=== PATIENT | female | born 1990 | race Caucasian/White ===

== ENCOUNTER 2017-09-10 17:26 | Emergency (ER) | payer OTHER, SELFPAY ==
[2017-09-10 17:30] VITALS: BP 126/68; PULSE 88; RESP 20; O2SAT 97; BMI 27.9
[2017-09-10 17:41] VITALS: BP 126/68; PULSE 88; RESP 20; TEMP 36.6; O2SAT 97; BMI 27.9
--- NOTE | 2017-09-10 17:52 | HMH.EDUTC ---
[facility] [place]ression: Skin problem Disposition: Home, Self-Care Condition on Discharge: Good Instructions: DI for Boils, Boil Additional Instructions: Follow up with family doctor in 12-48 hours if no improvement or worsening of symptom Call Dr Smith office tomorrow and seek appointment for possible I&D if needed Take medication as prescribed Monitor area for improvement or worsening of symptoms by monitoring the area that I marked on the outter ring of abcess If you began to notice red streaks, fever,chills or worsening of swelling in the area go straight to ER Over the counter Motrin or Tylenol will help with pain Warm compress to area may help with pain and swelling Prescriptions: cephALEXin [Keflex 500mg Cap] 500 mg PO QID #40 cap Sulfamethoxazole/Trimethoprim [Bactrim DS tablet] 1 each PO BID #20 tab Referrals: Chepe Red MD [Staff Physician] - (Call on 09/11/17 for appointment) Time of Disposition: 18:03 Medical Decision Making - Medical Records Medical records reviewed: Yes: I reviewed the patient's medical records. Vital Signs: 09/10/17 17:30 09/10/17 17:41 Temperature 98 F Temperature Source Temporal Artery Scan Pulse Rate [Right Radial] 88 88 Respiratory Rate 20 20 Blood Pressure [Right Arm] 126/68 126/68 Blood Pressure Mean [Right Arm] 87 87 Blood Pressure Source [Right Arm] Automatic Cuff Automatic Cuff Blood Pressure Position [Right Arm] Sitting Sitting 02 Sat by Pulse Oximetry 97 97 Oxygen Delivery Method Room Air - Han Inquiry Pt receiving controlled substance: No Han was queried for this patient: No [facility] [place] [facility] [place] - General Stated complaint: knot under L armpit Mode of Arrival: Family Vehicle Source of Information: Patient Limitations: No Limitations Description of Symptoms (Recalled from Triage Doc. by RN): C/O KNOT UNDER LEFT ARM HEENT Symptoms (Recalled from RN notes): No Resp Symptoms (Recalled from RN notes): No Skin Symptoms (Recalled from RN notes): Yes (KNOT UNDER LEFT ARM) MS Symptoms (Recalled from RN notes): No Functional Status (Recalled from RN notes): N/A - History of Present Illness Provider Complaint: States that she noticed small raised knot like area under her left arm State that yesterday felt like it may have drained some Today still sore and she thought she may want to come in and get checked to see if she needed antibiotics - Related Data Previous Rx's Medication Instructions Recorded Sulfamethoxazole/Trimethoprim 1 each PO BID #20 tab 09/10/17 [Bactrim DS tablet] cephALEXin [Keflex 500mg Cap] 500 mg PO QID #40 cap 09/10/17 Allergies Allergy/AdvReac Type Severity Reaction Status Date / Time doxycycline [DOXYCYCLINE] Allergy Intermediate VOMITING Verified 09/10/17 17:44 - Worker's Comp Is this a Worker's Comp case?: No [facility] History I have reviewed the patient's past medical history: Yes - Social History Alcohol Intake: never - Psychiatric History Expresses thoughts of harming self/others: None Suicide Plan Description: No Plan ROS Obtained: Yes All systems reviewed & no additional complaints - Integumentary/Breasts Skin/Breast: Reports other Comments: boil like Knot under her left armpit Physical Exam - General General appearance: alert, in no apparent distress - Respiratory Respiratory exam: Present: normal lung sounds bilaterally. Absent: respiratory distress - Cardiovascular Cardiovascular exam: Present: regular rate - Neurological Exam Neurological exam: Present: alert, oriented X3 - Skin Skin exam: Present: other - Expanded Skin Exam Type of lesion: Present: abscess, other 1 - small approximated 2-3 oval raised hard area with mild redness, no drainage warm to touch Comment: 2x3 oval area under her left arm Area was marked to monitor to see if getting larger or smaller, sensative to touch, no draina
--- NOTE | 2017-09-10 17:56 | ED_ITS ---
[facility] [place] Clinical Impression: Skin problem Disposition: Home, Self-Care Condition on Discharge: Good Instructions: DI for Boils, Boil Additional Instructions: Follow up with family doctor in 12-48 hours if no improvement or worsening of symptom Call Dr Smith office tomorrow and seek appointment for possible I&D if needed Take medication as prescribed Monitor area for improvement or worsening of symptoms by monitoring the area that I marked on the outter ring of abcess If you began to notice red streaks, fever,chills or worsening of swelling in the area go straight to ER Over the counter Motrin or Tylenol will help with pain Warm compress to area may help with pain and swelling Prescriptions: cephALEXin [Keflex 500mg Cap] 500 mg PO QID #40 cap Sulfamethoxazole/Trimethoprim [Bactrim DS tablet] 1 each PO BID #20 tab Referrals: Chepe Red MD [Staff Physician] - (Call on 09/11/17 for appointment) Time of Disposition: 18:03 Medical Decision Making - Medical Records Medical records reviewed: Yes: I reviewed the patient's medical records. Vital Signs: 09/10/17 17:30 09/10/17 17:41 Temperature 98 F Temperature Source Temporal Artery Scan Pulse Rate [Right Radial] 88 88 Respiratory Rate 20 20 Blood Pressure [Right Arm] 126/68 126/68 Blood Pressure Mean [Right Arm] 87 87 Blood Pressure Source [Right Arm] Automatic Cuff Automatic Cuff Blood Pressure Position [Right Arm] Sitting Sitting 02 Sat by Pulse Oximetry 97 97 Oxygen Delivery Method Room Air - Han Inquiry Pt receiving controlled substance: No Han was queried for this patient: No [facility] [place] HPI - General Stated complaint: knot under L armpit Mode of Arrival: Family Vehicle Source of Information: Patient Limitations: No Limitations Description of Symptoms (Recalled from Triage Doc. by RN): C/O KNOT UNDER LEFT ARM HEENT Symptoms (Recalled from RN notes): No Resp Symptoms (Recalled from RN notes): No Skin Symptoms (Recalled from RN notes): Yes (KNOT UNDER LEFT ARM) MS Symptoms (Recalled from RN notes): No Functional Status (Recalled from RN notes): N/A - History of Present Illness Provider Complaint: States that she noticed small raised knot like area under her left arm State that yesterday felt like it may have drained some Today still sore and she thought she may want to come in and get checked to see if she needed antibiotics - Related Data Previous Rx's Medication Instructions Recorded Sulfamethoxazole/Trimethoprim 1 each PO BID #20 tab 09/10/17 [Bactrim DS tablet] cephALEXin [Keflex 500mg Cap] 500 mg PO QID #40 cap 09/10/17 Allergies Allergy/AdvReac Type Severity Reaction Status Date / Time doxycycline [DOXYCYCLINE] Allergy Intermediate VOMITING Verified 09/10/17 17:44 - Worker's Comp Is this a Worker's Comp case?: No [facility] History I have reviewed the patient's past medical history: Yes - Social History Alcohol Intake: never - Psychiatric History Expresses thoughts of harming self/others: None Suicide Plan Description: No Plan ROS Obtained: Yes All systems reviewed & no additional complaints - Integumentary/Breasts Skin/Breast: Reports other Comments: boil like Knot under her left armpit Physical Exam - General General appearance: alert, in no apparent distress - Respiratory Respiratory
[2017-09-10 18:21] VITALS: BP 126/68; PULSE 80; RESP 20; TEMP 36.6; O2SAT 98
== END 2017-09-10 18:22 | disposition home or self-care (01) ==
PROVIDERS: Emergency Provider Emergency Medicine; Family Provider Internal Medicine Adolescent Medicine
DX: L98.9 Disorder of the skin and subcutaneous tissue, unspecified (principal); Z88.1 Allergy status to other antibiotic agents
CPT/HCPCS: 99202

== ENCOUNTER 2018-12-19 12:49 | Emergency (ER) | payer OTHER, SELFPAY ==
[2018-12-19 12:55] VITALS: BP 126/80; PULSE 100; RESP 18; TEMP 36.7; O2SAT 99; BMI 24.1
[2018-12-19 13:15] LABS: Microscopic, Urine URINE MICROSCOPIC (MICROSCOPIC)
[2018-12-19 13:17] LABS: Basophils % 0.4 % (0.1-2.0); Blood, Urine 3+ (Negative); Color,Urine RED (Yellow); Eosinophils # 0.2 K/mm3 (0.0-0.4); Eosinophils % 2.1 % (0.1-12.0); Glucose,Urine (UA) Negative (Negative); Hematocrit 41.3 % (37.0-47.0); Hemoglobin 13.2 g/dL (12.2-16.2); Ketones,Urine Negative (Negative); Leukocyte Esterase,Urine 2+ (Negative); Lymphocytes % 20.2 % (10-50); Mean Corpuscular Hemoglobin 27.7 pg (27.0-31.2); Mean Corpuscular Volume 86.4 fl (81-99); Mean Platelet Volume 7.8 fl (7.4-10.4); Monocytes # 0.5 K/mm3 (0.1-1.0); Monocytes % 4.7 % (1.7-9.3); Neutrophils # 7.3 K/mm3 (1.8-7.8); Neutrophils % 72.5 % (37.0-80.0); Nitrate,Urine Negative (Negative); Platelet Count 254 K/mm3 (142-424); Protein,Urine 2+ (Negative); Red Blood Count 4.78 M/mm3 (4.20-5.40); Red Cell Distribution Width 13.6 % (11.5-17.5); Specific Gravity, Urine 1.015 (1.005-1.030); Urobilinogen,Urine 0.2 EU/dl (0.2); White Blood Count 10.1 K/mm3 (4.8-10.8)
[2018-12-19 13:19] LABS: Urine Pregnancy, HCG Qual. Positive (Negative)
[2018-12-19 13:32] LABS: Appearance,Urine Cloudy (Clear); Bilirubin,Urine Negative (Negative)
[2018-12-19 13:47] LABS: Bacteria,Urine 1+ /lpf; RBC,Urine 50-100 #/hpf (0-3)
[2018-12-19 13:49] LABS: Alanine Aminotransferase 23 U/L (12-78); Albumin Level 3.9 gm/dL (3.4-5.0); Albumin/Globulin Ratio 1.2 (1.1-1.8); Alkaline Phosphatase 103 U/L (46-116); Aspartate Amino Transferase 10 U/L (15-37); Bilirubin,Total 0.3 mg/dL (0.2-1.0); Blood Urea Nitrogen 8 mg/dL (7-18); Calcium 8.7 mg/dL (8.5-10.1); Carbon Dioxide 27 mmol/L (21.0-32.0); Chloride 103 mmol/L (98-107); Creatinine Clearance Estimated 116 mL/min (50-200); Creatinine,Serum 0.75 mg/dL (0.55-1.02); Estimated Glomerular Filt Rate 92 ml/min (>60); GFR (African American) 111 ML/MIN (>60); Globulin 3.2 gm/dl (1.3-3.2); Glucose 85 mg/dL (74-106); HCG,Quantitative 4976 mIU/mL; Sodium 139 mmol/L (136-145); Total Protein,Serum 7.1 gm/dL (6.4-8.2)
--- NOTE | 2018-12-19 13:55 | US_ITS ---
US OB transvaginal HISTORY: ITS.REASON: ABNORMAL BLEEDING ORDERING PHYSICIAN: Humphrey Multani MD PATIENT AGE: 28 years COMPARISON: None FINDINGS: There is a small intrauterine gestational sac with a pole with a crown-rump length of 0.61 cm correlating to gestational age of 6 weeks and 3 days. The ultrasound is collapsed. No heart tones are present. Unremarkable adnexa. The uterus is retroverted. IMPRESSION: There is a small intrauterine gestational sac with a pole with a crown-rump length measuring 6 weeks and 3 days. No heart tones are apparent. Cannot confirm viability. Follow-up suggested with beta-hCG and ultrasound.
--- NOTE | 2018-12-19 14:11 | PC.NURSE ---
Pt to rad
[2018-12-19 15:01] VITALS: BP 126/66; PULSE 65; RESP 18; TEMP 36.6; O2SAT 100
--- NOTE | 2018-12-19 15:15 | HMH.EDUROGF ---
ED Disposition Clinical Impression: Threatened in first trimester Disposition: Home, Self-Care Condition on Discharge: Good Instructions: DI for Threatened Prescriptions: Hydrocodone/Acetaminophen [[place] 7.5-325 Tablet] 1 tab PO TID PRN 3 Days #10 tab PRN Reason: Mild To Moderate Pain Referrals: Provider,Referral, [Primary Care Provider] - Time of Disposition: 15:19 - Critical Care Critical Care Time: No Attestation: On 12/19/18, the high probability of a clinically significant, sudden or life threatening deterioration of the following system(s) required my full and direct attention, intervention and personal management. The time I documented below is in addition to time spent performing reported procedures but includes the following listed in this critical care notation. Medical Decision Making - Medical Records Medical records reviewed: Yes: I reviewed the patient's medical records. - Han Inquiry Pt receiving controlled substance: No Han was queried for this patient: No Vital Signs: 12/19/18 12:55 12/19/18 15:01 Temperature 98.1 F 98 F Temperature Source Oral Oral Pulse Rate 65 Pulse Rate [Right Apical] 100 H Respiratory Rate 18 18 Blood Pressure 126/66 Blood Pressure [Right Arm] 126/80 Blood Pressure Mean [Right Arm] 95 02 Sat by Pulse Oximetry 99 Oxygen Delivery Method Room Air Room Air - Lab Data Lab results reviewed: Yes: I reviewed the patient's lab results. Lab Results 12/19/18 13:00: Urine Color Red, Urine Appearance Cloudy, Urine pH 6.0, Ur Specific [place] 1.015, Urine Protein 2+, Urine Glucose (UA) Negative, Urine Ketones Negative, Urine Blood 3+, Urine Nitrate Negative, Urine Bilirubin Negative, Urine Urobilinogen 0.2, Ur Leukocyte Esterase 2+ A, Urine RBC 50-100, Urine WBC 10-20, Ur Squamous Epith Cells 3-5, Urine Bacteria 1+ 12/19/18 13:00: WBC 10.1, RBC 4.78, Hgb 13.2, Hct 41.3, MCV 86.4, MCH 27.7, MCHC 32.0, RDW 13.6, Plt Count 254, MPV 7.8, Neut % (Auto) 72.5, Lymph % (Auto) 20.2, [place] % (Auto) 4.7, Eos % (Auto) 2.1, Baso % (Auto) 0.4, Neut # (Auto) 7.3, Lymph # (Auto) 2.0, [place] # (Auto) 0.5, Eos # (Auto) 0.2, Baso # (Auto) 0.0 12/19/18 13:00: Sodium 139, Potassium 4.0, Chloride 103, Carbon Dioxide 27, Anion Gap 13.0, BUN 8, Creatinine 0.75, Estimated Creat Clear 116, Estimated GFR 92, Est GFR ( Amer) 111, Glucose 85, Calcium 8.7, Total Bilirubin 0.3, AST 10 L, ALT 23, Alkaline Phosphatase 103, Total Protein 7.1, Albumin 3.9, Globulin 3.2, Albumin/Globulin Ratio 1.2, HCG, Quant [id number] H 12/19/18 13:00: Urine HCG, Qual Positive Result diagrams: 12/19/18 13:00 12/19/18 13:00 Orders (Tests/Meds): ORDERS Category Date Time Status Urine Culture Stat Micro 12/19/18 13:00 Received US OB transvaginal Stat Ultrasound 12/19/18 13:55 Taken Female Urogenital HPI - General Chief complaint: Vaginal Bleeding Stated complaint: Vaginal Bleeding Pt. is Time Seen by Provider: 12/19/18 15:15 Mode of Arrival: Ambulatory Source of Information: Patient Limitations: No Limitations Description of Symptoms (Recalled from ER Triage Doc. by RN): PT C/O VAGINAL BLEEDING. PT STATES SHE IS AND DOESNT KNOW HOW FAR ALONG SHE IS. - History of Present Illness HPI Narrative: 4 days of suprapubic cramping/aching, light bleeding of lesser intensity than a menses. is suspected by her, not tested as of yet : yes - Related Data Previous Rx's Medication Instructions Recorded Sulfamethoxazole/Trimethoprim 1 each PO BID #20 tab 09/10/17 [Bactrim DS tablet] cephALEXin [Keflex 500mg Cap] 500 mg PO QID #40 cap 09/10/17 Hydrocodone/Acetaminophen [[place] 1 tab PO TID PRN 3 Days #10 tab 12/19/18 7.5-325 Tablet] Allergies Allergy/AdvReac Type Severity Reaction Status Date / Time doxycycline [DOXYCYCLINE] Allergy Intermediate VOMITING Verified 09/10/17 17:44 [facility] History - Hepatitis A Screen Drug us
--- NOTE | 2018-12-19 15:18 | ED_ITS ---
ED Disposition Clinical Impression: Threatened in first trimester Disposition: Home, Self-Care Condition on Discharge: Good Instructions: DI for Threatened Prescriptions: Hydrocodone/Acetaminophen [[place] 7.5-325 Tablet] 1 tab PO TID PRN 3 Days #10 tab PRN Reason: Mild To Moderate Pain Referrals: Provider,Referral, [Primary Care Provider] - Time of Disposition: 15:19 - Critical Care Critical Care Time: No Attestation: On 12/19/18, the high probability of a clinically significant, sudden or life t hreatening deterioration of the following system(s) required my full and direct attention, intervention and personal management. The time I documented below is in addition to time spent performing reported procedures but includes the following listed in this critical care notation. Medical Decision Making - Medical Records Medical records reviewed: Yes: I reviewed the patient's medical records. - Han Inquiry Pt receiving controlled substance: No Han was queried for this patient: No Vital Signs: 12/19/18 12:55 12/19/18 15:01 Temperature 98.1 F 98 F Temperature Source Oral Oral Pulse Rate 65 Pulse Rate [Right Apical] 100 H Respiratory Rate 18 18 Blood Pressure 126/66 Blood Pressure [Right Arm] 126/80 Blood Pressure Mean [Right Arm] 95 02 Sat by Pulse Oximetry 99 Oxygen Delivery Method Room Air Room Air - Lab Data Lab results reviewed: Yes: I reviewed the patient's lab results. Lab Results 12/19/18 13:00: Urine Color Red, Urine Appearance Cloudy, Urine pH 6.0, Ur Specific [place] 1.015, Urine Protein 2+, Urine Glucose (UA) Negative, Urine Ketones Negative, Urine Blood 3+, Urine Nitrate Negative, Urine Bilirubin Negati ve, Urine Urobilinogen 0.2, Ur Leukocyte Esterase 2+ A, Urine RBC 50-100, Urine WBC 10-20, Ur Squamous Epith Cells 3-5, Urine Bacteria 1+ 12/19/18 13:00: WBC 10.1, RBC 4.78, Hgb 13.2, Hct 41.3, MCV 86.4, MCH 27.7, MCHC 32.0, RDW 13.6, Plt Count 254, MPV 7.8, Neut % (Auto) 72.5, Lymph % (Auto) 20.2, [place] % (Auto) 4.7, Eos % (Auto) 2.1, Baso % (Auto) 0.4, Neut # (Auto) 7.3, Lymph # (Auto) 2.0, [place] # (Auto) 0.5, Eos # (Auto) 0.2, Baso # (Auto) 0.0 12/19/18 13:00: Sodium 139, Potassium 4.0, Chloride 103, Carbon Dioxide 27, Anion Gap 13.0, BUN 8, Creatinine 0.75, Estimated Creat Clear 116, Estimated GFR 92, Est GFR ( Amer) 111, Glucose 85, Calcium 8.7, Total Bilirubin 0.3, AST 10 L, ALT 23, Alkaline Phosphatase 103, Total Protein 7.1, Albumin 3.9, Globulin 3.2, Albumin/Globulin Ratio 1.2, HCG, Quant [id number] H 12/19/18 13:00: Urine HCG, Qual Positive Result diagrams: 12/19/18 13:00 12/19/18 13:00 Orders (Tests/Meds): ORDERS Category Date Time Status Urine Culture Stat Micro 12/19/18 13:00 Received US OB transvaginal Stat Ultrasound 12/19/18 13:55 Taken Female Urogenital HPI - General Chief complaint: Vaginal Bleeding Stated complaint: Vaginal Bleeding Pt. is Time Seen by Provider: 12/19/18 15:15 Mode of Arrival: Ambulatory Source of Information: Patient Limitations: No Limitations Description of Symptoms (Recalled from ER Triage Doc. by RN): PT C/O VAGINAL BLEEDING. PT STATES SHE IS AND DOESNT KNOW HOW FAR ALONG SHE IS. - History of Present Il
== END 2018-12-19 15:32 | disposition home or self-care (01) ==
PROVIDERS: Emergency Provider Emergency Medicine
DX: O20.0 Threatened abortion (principal)
CPT/HCPCS: 76817; 80053; 81001; 81025; 84702; 85025; 87086; 99283

== ENCOUNTER → 2018-12-22 15:55 | Outpatient (CLI) | payer OTHER, SELFPAY ==
[2018-12-22 17:32] LABS: HCG,Quantitative 532 mIU/mL
== END ==
PROVIDERS: Referring Provider Nurse Practitioner Obstetrics & Gynecology; Visit Provider Emergency Medicine
DX: O20.0 Threatened abortion (principal)
CPT/HCPCS: 84702

== ENCOUNTER 2020-12-20 02:05 | Emergency (ER) | payer OTHER, SELFPAY ==
[2020-12-20 02:11] VITALS: BP 139/97; PULSE 79; RESP 18; TEMP 36.8; O2SAT 99; BMI 29.9
--- NOTE | 2020-12-20 02:32 | HMH.EDDENT ---
ED Disposition Clinical Impression: Dental abscess, Pain, dental Disposition: Home, Self-Care Condition on Discharge: Good Instructions: DI for Dental Pain Additional Instructions: call dentist and pcp monday Prescriptions: clindamycin HCL [Clindamycin HCl] 300 mg PO TID #21 cap Transmission Status: Pending to [id number] Referrals: Provider,Referral, [Primary Care Provider] - - Critical Care Critical Care Time: No Attestation: On 12/20/20, the high probability of a clinically significant, sudden or life threatening deterioration of the following system(s) required my full and direct attention, intervention and personal management. The time I documented below is in addition to time spent performing reported procedures but includes the following listed in this critical care notation. Medical Decision Making - Medical Records Medical records reviewed: Yes: I reviewed the patient's medical records. - Han Inquiry Pt receiving controlled substance: No Vital Signs: 12/20/20 02:11 Temperature 98.3 F Temperature Source Oral Pulse Rate [Right Brachial] 79 Respiratory Rate 18 Blood Pressure [Right Arm] 139/97 H Blood Pressure Mean [Right Arm] 111 Blood Pressure Source [Right Arm] Automatic Cuff Blood Pressure Position [Right Arm] Sitting 02 Sat by Pulse Oximetry 99 Oxygen Delivery Method Room Air Dental HPI - General Chief complaint: Dental/Oral Stated complaint: Tooth pulled 12-16-20 ? infection Time Seen by Provider: 12/20/20 02:20 Mode of Arrival: Family Vehicle Source of Information: Patient, Medical Record Limitations: No Limitations Description of Symptoms (Recalled from ER Triage Doc. by RN): RIGHT UPPER JAW WITH GUM SWOLLEN AND DRAINING FOUL DRAINAGE; PT STATES SHE HAD A TOOTH PULLED ON MON IN [facility] AT [facility] [place]. STATES IT WAS FINE THIS MORNING AND HAS DEVELOPED ADDITIONAL SWELLING AND DRAINAGE THROUGHOUT DAY TODAY. AFEBRILE. NO MEDS. - History of Present Illness HPI Narrative: after dental extraction has swollen jaw and d/c - which started tonbrian MORROW Complaint: tooth pain Onset (ago): day(s) Duration: constant Severity: moderate Context: recent dentist visit- dry socket Associated symptoms: gum swelling Treatment prior to arrival: topical analgesic - Related Data Previous Rx's Medication Instructions Recorded clindamycin HCL [Clindamycin HCl] 300 mg PO TID #21 cap 12/20/20 Allergies Allergy/AdvReac Type Severity Reaction Status Date / Time doxycycline [DOXYCYCLINE] Allergy Intermediate VOMITING Verified 12/26/18 15:47 [facility] History - Hepatitis A Screen Drug use history?: No High risk sexual behaviors?: No History of sexually transmitted infection?: No Currently employed?: No Childcare worker?: No Do you have indoor plumbing?: Yes Do you have electricity?: Yes Attestation statement:: This patient has been screened for Hepatitis A risk factors. I have reviewed the patient's past medical history: Yes Comment: 2016-Bartholin gland cyst - Social History Smoking Status: Never smoker Alcohol Intake: never Occupational Status: employed ROS Obtained: Yes All systems reviewed & no additional complaints - Constitutional Constitutional: Denies fever(s) - Eyes Eyes: Denies change in vision - ENT Ears, Nose, Mouth, and Throat: Reports as per HPI, Reports dental pain - Cardiovascular Cardiovascular: Denies chest pain - Respiratory Respiratory: Denies shortness of breath - Gastrointestinal Gastrointestingal: Denies: abdominal pain - Genitourinary Female Genitourinary: Denies hematuria - Musculoskeletal Musculoskeletal: Denies joint pain, Denies joint swelling - Integumentary/Breasts Skin/Breast: Denies rash - Neurologic Neurologic: Denies headache(s), Denies seizure-like activity Physical Exam - General General appearance: alert - Head Head exam: normocephalic - Eye Eye exam: Present: PERRL, EOMI - ENT E
[2020-12-20 02:57] VITALS: BP 125/74; PULSE 73; RESP 18; TEMP 36.8; O2SAT 98
== END 2020-12-20 02:59 | disposition home or self-care (01) ==
PROVIDERS: Emergency Provider Emergency Medicine
DX: K04.7 Periapical abscess without sinus (principal)
CPT/HCPCS: 99281

== ENCOUNTER → 2021-03-05 08:23 | Outpatient (CLI) | payer OTHER, SELFPAY ==
[2021-03-05 09:55] LABS: HCG,Quantitative 10749 mIU/ml (0-5.42)
== END ==
PROVIDERS: Visit Provider Nurse Practitioner Obstetrics & Gynecology
DX: Z34.90 Encounter for supervision of normal pregnancy, unspecified, unspecified trimester (principal)
CPT/HCPCS: 36415; 84702

== ENCOUNTER → 2021-03-24 11:52 | Outpatient (CLI) | payer OTHER, SELFPAY ==
[2021-03-24 12:28] LABS: Basophils # 0.1 K/mm3 (0-0.2); Basophils % 0.6 % (0.1-2.0); Eosinophils # 0.1 K/mm3 (0.0-0.4); Eosinophils % 1.4 % (0.1-12.0); Hematocrit 41.2 % (37.0-47.0); Hemoglobin 13.3 g/dL (12.2-16.2); Lymphocytes # 1.8 K/mm3 (0.7-4.5); Mean Corpuscular HGB Conc 32.3 g/dL (31.8-35.4); Mean Corpuscular Volume 86.8 fl (81-99); Mean Platelet Volume 9.1 fl (7.4-10.4); Monocytes # 0.3 K/mm3 (0.1-1.0); Monocytes % 3.8 % (1.7-9.3); Neutrophils # 6.3 K/mm3 (1.8-7.8); Neutrophils % 73.2 % (37.0-80.0); Platelet Count 326 K/mm3 (142-424); Red Blood Count 4.75 M/mm3 (4.20-5.40); White Blood Count 8.6 K/mm3 (4.8-10.8)
[2021-03-25 08:15] LABS: HIV Screen 4th Generation wRfx Non Reactive (Non Reactive); HSV 2 IgG, Type Spec <0.91 index (0.00-0.90); Hepatitis B Surface Antigen Negative (Negative); Hepatitis C Antibody <0.1 s/co ratio (0.0-0.9)
[2021-03-25 13:15] LABS: Rapid Plasma Reagin Ab Titer Non Reactive (NonRea<1:1)
== END ==
PROVIDERS: Visit Provider Nurse Practitioner Obstetrics & Gynecology
DX: Z34.90 Encounter for supervision of normal pregnancy, unspecified, unspecified trimester (principal)
CPT/HCPCS: 36415; 85025; 86592; 86695; 86703; 86762; 86790; 86850; 87340; 87380; G0432

== ENCOUNTER 2021-03-30 08:09 | Emergency (ER) | payer OTHER, SELFPAY ==
[2021-03-30 08:10] VITALS: BP 131/74; PULSE 88; RESP 16; TEMP 36.8; O2SAT 99; BMI 28.9
--- NOTE | 2021-03-30 08:40 | HMH.EDGENADL ---
ED Disposition Clinical Impression: First trimester , Nausea/vomiting in Disposition: Home, Self-Care Condition on Discharge: Fair Instructions: DI for Hyperemesis Gravidarum, DI for Nausea -- Adult Additional Instructions: You have been evaluated for nausea and vomiting. Found to have a that is approximately 9 weeks. Please eat small meals. Drink water and fluids containing electrolytes to stay hydrated. Take vitamin B6 and doxylamine for nausea. Take Zofran for refractory nausea. Your urinalysis today showed slight signs of infection. Please take Macrobid as prescribed. Follow-up with your ADMISSIONS ADVISOR. Return to the emergency department for any new or worsening symptoms, persistent vomiting, vaginal bleeding, cramping, other concerns. Prescriptions: nitrofurantoin macrocrystaL [Macrodantin 100mg capsule] 100 mg PO BID 5 Days #10 cap Transmission Status: Received by [id number] ondansetron HCL [Ondansetron 4mg tab*] 4 mg PO Q6 PRN #12 tab PRN Reason: Nausea And Vomiting Transmission Status: Received by [id number] Referrals: Provider,Referral, [Primary Care Provider] - Time of Disposition: 10:35 - Critical Care Critical Care Time: No Attestation: On 03/30/21, the high probability of a clinically significant, sudden or life threatening deterioration of the following system(s) required my full and direct attention, intervention and personal management. The time I documented below is in addition to time spent performing reported procedures but includes the following listed in this critical care notation. Medical Decision Making - Medical Records Medical records reviewed: Yes: I reviewed the patient's medical records. - Han Inquiry Pt receiving controlled substance: No Vital Signs: 03/30/21 08:10 03/30/21 11:23 Temperature 98.2 F 98.2 F Temperature Source Oral Oral Pulse Rate 77 Pulse Rate [Right Radial] 88 Respiratory Rate 16 16 Blood Pressure 119/66 Blood Pressure [Right Arm] 131/74 Blood Pressure Mean [Right Arm] 93 Blood Pressure Source [Right Arm] Automatic Cuff Blood Pressure Position [Right Arm] Sitting 02 Sat by Pulse Oximetry 99 Oxygen Delivery Method Room Air Room Air - Lab Data Lab Results 03/30/21 08:34: WBC 8.1, RBC 4.89, Hgb 13.7, Hct 42.0, MCV 85.9, MCH 28.0, MCHC 32.6, RDW 14.0, Plt Count 291, MPV 9.0, Neut % (Auto) 78.1, Lymph % (Auto) 17.5, [place] % (Auto) 2.7, Eos % (Auto) 1.2, Baso % (Auto) 0.5, Neut # (Auto) 6.4, Lymph # (Auto) 1.4, [place] # (Auto) 0.2, Eos # (Auto) 0.1, Baso # (Auto) 0.0 03/30/21 08:34: Sodium 138, Potassium 4.0, Chloride 105, Carbon Dioxide 24, Anion Gap 13.0, BUN 9, Creatinine 0.60, Estimated Creat Clear 171, Estimated GFR 117, Est GFR ( Amer) 142, Glucose 94, Calcium 9.6, Total Bilirubin 0.4, AST 20, ALT 23, Alkaline Phosphatase 96, Total Protein 7.3, Albumin 4.3, Globulin 3.0, Albumin/Globulin Ratio 1.4, HCG, Quant [id number] H 03/30/21 08:38: Urine Color Yellow, Urine Appearance Sl cloudy, Urine pH 6.0, Ur Specific [place] >= 1.030, Urine Protein 1+, Urine Glucose (UA) Negative, Urine Ketones 3+, Urine Blood Trace-i, Urine Nitrate Negative, Urine Bilirubin 1+ A, Urine Urobilinogen 0.2, Ur Leukocyte Esterase 2+ A, Urine RBC 3-5, Urine WBC 10-20, Ur Squamous Epith Cells 5-10, Urine Bacteria 1+ 03/30/21 08:38: Urine HCG, Qual Positive Result diagrams: 03/30/21 08:34 03/30/21 08:34 Orders (Tests/Meds): ED MEDICATIONS Discontinued Medications Generic Name Dose Route Start Last Admin Trade Name Freq PRN Reason Stop Dose Admin Ondansetron HCl 4 mg 03/30/21 08:18 03/30/21 08:30 Ondansetron 4mg Odt SL 03/30/21 08:19 4 mg ONCE ONE Administration ORDERS Category Date Time Status Urine Culture Stat Micro 03/30/21 08:38 Received Medical Decision Narrative: In summary this is a 30-year-old G8, P3 female presenting to the emergency department with nausea and vomiting. Concer
[2021-03-30 08:45] LABS: Basophils % 0.5 % (0.1-2.0); Eosinophils # 0.1 K/mm3 (0.0-0.4); Eosinophils % 1.2 % (0.1-12.0); Hemoglobin 13.7 g/dL (12.2-16.2); Lymphocytes # 1.4 K/mm3 (0.7-4.5); Lymphocytes % 17.5 % (10-50); Mean Corpuscular HGB Conc 32.6 g/dL (31.8-35.4); Mean Corpuscular Volume 85.9 fl (81-99); Monocytes # 0.2 K/mm3 (0.1-1.0); Monocytes % 2.7 % (1.7-9.3); Neutrophils # 6.4 K/mm3 (1.8-7.8); Neutrophils % 78.1 % (37.0-80.0); Platelet Count 291 K/mm3 (142-424); Red Blood Count 4.89 M/mm3 (4.20-5.40); White Blood Count 8.1 K/mm3 (4.8-10.8)
[2021-03-30 08:46] LABS: Microscopic, Urine URINE MICROSCOPIC (MICROSCOPIC)
[2021-03-30 08:49] LABS: Appearance,Urine SL CLOUDY (Clear); Blood, Urine TRACE-I (Negative); Color,Urine YELLOW (Yellow); Glucose,Urine (UA) Negative (Negative); Ketones,Urine 3+ (Negative); Leukocyte Esterase,Urine 2+ (Negative); Nitrate,Urine Negative (Negative); Protein,Urine 1+ (Negative); Specific Gravity, Urine >= 1.030 (1.005-1.030); Urobilinogen,Urine 0.2 EU/dl (0.2)
[2021-03-30 08:50] LABS: Urine Pregnancy, HCG Qual. Positive (Negative)
[2021-03-30 08:51] LABS: Bilirubin,Urine 1+ (Negative)
[2021-03-30 08:51] LABS: Alanine Aminotransferase 23 U/L (12-78); Albumin Level 4.3 g/dl (3.5-5.0); Albumin/Globulin Ratio 1.4 (1.1-1.8); Alkaline Phosphatase 96 U/L (38-126); Aspartate Amino Transferase 20 U/L (14-36); Bilirubin,Total 0.4 mg/dl (0.2-1.3); Blood Urea Nitrogen 9 mg/dl (7-17); Calcium 9.6 mg/dl (8.4-10.2); Carbon Dioxide 24 mmol/L (22.0-30.0); Chloride 105 mmol/L (98-107); Creatinine Clearance Estimated 171 mL/min (50-200); Estimated Glomerular Filt Rate 117 ml/min (>60); GFR (African American) 142 ML/MIN (>60); Glucose 94 mg/dl (74-100); Sodium 138 mmol/L (136-145); Total Protein,Serum 7.3 g/dl (6.3-8.2)
[2021-03-30 08:55] LABS: Bacteria,Urine 1+ /lpf
--- NOTE | 2021-03-30 09:00 | US_ITS ---
PROCEDURE: US OB <= 14 WEEKS FETUS CLINICAL INDICATION: pain, vomiting, COMPARISON: US US OB <= 14 WEEKS FETUS from 03/20/2019 FINDINGS: An intrauterine gestational sac is present with a pole with a crown-rump length of 2.38cm correlating to gestational age of 9weeks 1day. heart tones are present with an FHR of 167bpm. Yolk sac is noted. There is a small right corpus luteum at 15 mm. IMPRESSION: Live IUP at 9 weeks 1 day Estimated due date by Ultrasound is 11/01/2021 Dictated by: Tino Goldman MD 03/30/2021 10:19 Tino Goldman MD in OV 03/30/2021 10:19
[2021-03-30 09:33] LABS: HCG,Quantitative 109660 mIU/ml (0-5.42)
[2021-03-30 11:23] VITALS: BP 119/66; PULSE 77; RESP 16; TEMP 36.8; O2SAT 99
== END 2021-03-30 11:23 | disposition home or self-care (01) ==
PROVIDERS: Emergency Provider Emergency Medicine
DX: O21.0 Mild hyperemesis gravidarum (principal); Z3A.09 9 weeks gestation of pregnancy
CPT/HCPCS: 76801; 80053; 81001; 81025; 84702; 85025; 87086; 99283

== ENCOUNTER → 2021-06-17 13:05 | Outpatient (CLI) | payer OTHER, SELFPAY ==
--- NOTE | 2021-06-17 13:10 | US_ITS ---
PROCEDURE: US OB >= 14 WEEKS FETUS CLINICAL INDICATION: 20 weeks gestation COMPARISON: US US OB <= 14 WEEKS FETUS from 03/30/2021 FINDINGS: Single live fetus is present in breech presentation. Cervix is closed measuring 3.7 cm. The placenta is mostly anterior and grade 1 with a wrap-around component. Complete survey performed and was unremarkable on the submitted images as in PACS. No discrete anomalies identified on survey imaging by technologist. Active fetus. Three-vessel cord with satisfactory umbilical cord insertion. 4- chamber heart noted. Somewhat limited evaluation of the heart due to fetus position Survey of brain & ventricles Unremarkable. Face and neck survey unremarkable. Diaphragm and chest views unremarkable. Abdomen: Both kidneys noted and unremarkable. Stomach noted and satisfactory. Spine: Survey of the spine satisfactory with no anomalies identified nor imaged. Both arms and legs noted. Amniotic Fluid: Adequate. Maternal adnexa: No significant findings. Measurements: Average ultrasound age 20weeks 3days. Gestational Age 20weeks 3days Estimated due date by ultrasound age 0511/01/2021. Estimated weight 349g BPD = 20weeks 3days OFD = 20weeks 5days HC = 20weeks AC = 20weeks 2days FL = 20weeks 5days Growth Percentile= 41% Heart Rate = 136bpm Cerebellum = 20weeks 5days Humerus = 20weeks 5days HC/AC is 1.15 CI is 0.77 FL/BPD is 0.71 FL/AC is 0.23 IMPRESSION: Live IUP at 20 weeks 3 days. No obvious anomalies. Please see above for detail Dictated by: Tino Goldman MD 06/17/2021 17:14 Tino Goldman MD in OV 06/17/2021 17:14
== END ==
PROVIDERS: PCP Nurse Practitioner Obstetrics & Gynecology; Visit Provider Nurse Practitioner Obstetrics & Gynecology
DX: Z36.0 Encounter for antenatal screening for chromosomal anomalies (principal)
CPT/HCPCS: 76805

== ENCOUNTER → 2021-10-18 12:59 | Outpatient (CLI) | payer OTHER, SELFPAY | PROVIDERS: Visit Provider Nurse Practitioner Obstetrics & Gynecology | DX: Z34.90 Encounter for supervision of normal pregnancy, unspecified, unspecified trimester (principal); Z3A.38 38 weeks gestation of pregnancy | CPT/HCPCS: 86403 ==

== ENCOUNTER 2021-10-26 04:56 | Inpatient (IN) | payer OTHER, SELFPAY ==
[2021-10-26] VITALS (14 sets, daily range): BP systolic 101–133; BP diastolic 60–81; PULSE 90–112; RESP 16–18; TEMP 36.5–37.1; O2SAT 97–100; BMI 31.8
[2021-10-26 05:46] LABS: Coronavirus 19, PCR Not Detected (NotDetected); Influenza A, PCR Not Detected (NotDetected); Influenza B, PCR Not Detected (NotDetected); Microscopic, Urine URINE MICROSCOPIC (MICROSCOPIC)
[2021-10-26 05:50] LABS: Basophils # 0.1 K/mm3 (0-0.2); Basophils % 1.1 % (0.1-2.0); Eosinophils # 0.1 K/mm3 (0.0-0.4); Eosinophils % 1.4 % (0.1-12.0); Hematocrit 27.9 % (37.0-47.0); Hemoglobin 9.2 g/dL (12.2-16.2); Lymphocytes # 1.5 K/mm3 (0.7-4.5); Lymphocytes % 19.5 % (10-50); Mean Corpuscular HGB Conc 32.9 g/dL (31.8-35.4); Mean Corpuscular Hemoglobin 23.4 pg (27.0-31.2); Mean Corpuscular Volume 71.3 fl (81-99); Mean Platelet Volume 9.4 fl (7.4-10.4); Monocytes # 0.3 K/mm3 (0.1-1.0); Monocytes % 4.2 % (1.7-9.3); Neutrophils # 5.5 K/mm3 (1.8-7.8); Neutrophils % 73.8 % (37.0-80.0); Platelet Count 285 K/mm3 (142-424); Red Blood Count 3.91 M/mm3 (4.20-5.40); Red Cell Distribution Width 17.7 % (11.5-17.5); White Blood Count 7.4 K/mm3 (4.8-10.8)
[2021-10-26 05:57] LABS: Appearance,Urine SL CLOUDY (Clear); Bilirubin,Urine Negative (Negative); Blood, Urine Negative (Negative); Color,Urine YELLOW (Yellow); Glucose,Urine (UA) Negative (Negative); Ketones,Urine Negative (Negative); Leukocyte Esterase,Urine 1+ (Negative); Nitrate,Urine Negative (Negative); Protein,Urine Negative (Negative); Specific Gravity, Urine 1.015 (1.005-1.030)
[2021-10-26 06:08] LABS: Barbiturates Screen,Urine Negative ng/ml (<200)
[2021-10-26 06:09] LABS: Benzodiazepines Screen,Urine Negative ng/ml (<200)
[2021-10-26 06:10] LABS: Amphetamine/Metha Screen,Urine Negative ng/ml (<1000); Cannabinoid Screen,Urine Negative ng/ml (<50)
[2021-10-26 06:11] LABS: Cocaine Screen,Urine Negative ng/ml (<300)
[2021-10-26 06:12] LABS: Methadone Screen,Urine Negative ng/ml (<300); Opiate Screen,Urine Negative ng/ml (<300)
[2021-10-26 06:13] LABS: Phencyclidine Screen,Urine Negative ng/ml (<25)
[2021-10-26 06:16] LABS: Bacteria,Urine 2+ /lpf; Mucus,Urine 1+ /lpf; Trichomonas,Urine 1+ /lpf
--- NOTE | 2021-10-26 08:52 | HMH.LABNOT ---
Labor Note - Subjective: Date: 10/26/21 Time: 08:15 regular contraction - Objective: NST:: Reactive Contractions:: every 2-3 minutes Cervical Dilation:: 4 Effacement:: 75% Station: -1 Membranes: artificially ruptured - Fetus: Monitoring?: Yes monitoring type:: Internal and External Comment:: I ruptured her membranes and inserted an IUPC. - Assessment: Labor progressing?: Yes Cephalopelvic disproportion?: No Patient Problems: All Active Problems First trimester (Acute) Nausea/vomiting in (Acute) (Acute) Dental abscess (Acute) Pain, dental (Acute) - Plan: Anesthesia for epidural?: Yes Continue to labor down?: Yes Plan for ?: No Continue to monitor?: Yes Start pushing?: No
--- NOTE | 2021-10-26 08:54 | HMH.OBAPHP ---
OB - H&P: HPI Antepartum - History of Present Illness Chief complaint: Term , previous vaginal deliveries History of present illness: She is a 30-year-old 8 para 4 aborta 3 who was 39 and 1 weeks gestational age. She has had previous rapid deliveries and as result of that we elected to induce her labor at term. - History of Present Criteria for establishing EDC:: LMP confirmed by 1st trimester US care: good care Ultrasounds: normal 1st trimester US, normal mid trimester US Obstetrical complications: none Medical complications: none - Labs Blood type: O (+) positive Rubella: immune RPR/VDRL: nonreactive GBS status: negative HBsAG: negative [facility] History I have reviewed the patient's past medical history: Yes *Have you ever received a pneumonia vaccine?: No *Have you received a flu vaccine this season?: No Other Surgeries: Yes: Other. 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 Review of Systems - Review of Systems Review of systems:: pertinent systems reviewed and negative unless documented below Meds Home Medications Medication Instructions Recorded Confirmed Type No Known Home Medications 10/26/21 10/26/21 History Allergies Allergy/AdvReac Type Severity Reaction Status Date / Time doxycycline [DOXYCYCLINE] Allergy Intermediate VOMITING Verified 10/18/21 14:10 OB - H&P: Exam - Physical Exam Vital signs: Temp Pulse Resp BP Pulse Ox 98.7 F 92 H 18 114/70 99 10/26/21 05:26 10/26/21 05:26 10/26/21 05:26 10/26/21 05:26 10/26/21 05:26 - Constitutional no acute distress - Routine HEENT Exam Head: Present: normocephalic Eye: Present: EOMI, PERRL ENT: Present: mucous membranes moist - Routine Neck Exam Present: supple, full ROM - Routine Respiratory Exam Absent: accessory muscle use (good air entry bilaterally), respiratory distress, wheezes, crackles - Routine Cardiovascular Exam Present: RRR. Absent: murmur - Routine Abdominal Exam Present: soft, normoactive bowel sounds. Absent: tenderness, distended, guarding - Routine Rectal Exam Patient deferred: visual exam, digital exam - Routine Exam Patient deferred: external exam, groin exam, perineal exam - Routine Extremities Exam Present: full ROM. Absent: cyanosis, edema - Routine Skin Exam Present: intact. Absent: cyanosis - Routine Neurological Exam Present: alert, oriented X3 - Routine Psychiatric Exam Present: normal affect OB - Results - Labs Labs: Short CBC 10/26/21 Range/Units 05:30 WBC 7.4 (4.8-10.8) K/mm3 Hgb 9.2 L (12.2-16.2) g/dL Hct 27.9 L (37.0-47.0) % Plt Count 285 (142-424) K/mm3 Urine 10/26/21 Range/Units 05:30 Urine Color Yellow (Yellow) Urine Appearance Sl cloudy (Clear) Urine pH 6.0 (5.0-8.5) Ur Specific [place] 1.015 (1.005-1.030) Urine Protein Negative (Negative) Urine Glucose (UA) Negative (Negative) OB - A/P Antepartum (1) Normal delivery at term Status: Acute - Additional Plan Planning to breastfeed?: No Plan: induction Additional Information:: She is admitted at term for delivery.
--- NOTE | 2021-10-26 11:44 | HMH.ANESCL ---
[facility] Anesthesia Checklist - Patient Identification Patient Identification: Arm Band, Verbal (Name & ) - Structural Data Admitted From: Inpatient Planned Operative Procedure/s: GRANT Consent for Planned Operative Procedure(s) Verified: Yes Verified Documents: Surgical Consent - NPO Status Verified Time NPO: 00:00 - Chart Verification Results Verified: CBC - Airway Assessment C-Spine Mobility Assessed: Yes TMJ Mobility Assessed: Yes Dentition: Good Dentition - Neurological Assessment Level of Consciousness: Awake, Alert, Appropriate - Anesthesia Plan Anesthesia Type: Epidural [facility] History *Have you ever received a pneumonia vaccine?: No *Have you received a flu vaccine this season?: No Anesthesia experience/problems:: none Other Surgeries: Yes: Other. 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
--- NOTE | 2021-10-26 11:59 | HMH.DN ---
- Delivery Note Delivery Date:: 10/26/21 Delivery Time:: 10:52 Anesthesia Type: Epidural Was labor medically induced?: Yes Induction method: per pitocin protocol Gestational age (weeks): 39 delivered prior to 39 weeks?: No Gender: Male at 1 minute: 8 at 5 minutes: 9 Delivery Procedure:: She is a 8 para 4 aborta 3 who was 39 weeks gestational age. We brought her in for induction of labor at term. She was started on IV oxytocin and had her membranes ruptured. She progressed under labor epidural to full dilation and delivered spontaneously a liveborn male child at 10:52 AM. On deliver the head the anterior shoulder then delivered followed by the rest the infant's body atraumatically. The baby was vigorous and cried spontaneously. The oropharynx and nasopharynx were bulb suction. We allowed the cord to continue to pulsate for approximately 1 minute. The cord was then doubly clamped and cut and the infant was placed on the mother's abdomen for further care. The nurse assigned Apgars of 8 at 1 minute and 9 at 5 minutes. She then received IV oxytocin and I attempted to deliver the placenta however it remained in situ. Of note there was a true knot in the cord. I collected cord blood. I attempted a manual removal with her epidural but was unable to do so. We will take her to the operating room for a removal of her retained placenta. Estimated blood loss was approximately 200 cc. We discussed the risks of bleeding and infection. We will give her a dose of antibiotics on the way to the operating room. Consents were signed. Placental Delivery Description: Manual Removal
--- NOTE | 2021-10-26 12:11 | HMH.ANESI ---
[facility] Anesthesia Record Part I Intake, IV Amount: 700 Estimated blood loss (mL): 10 Urine output (mL): 0 Blood Pressure: 121/67 SaO2: 94 Pulse Rate: 84 Respiratory Rate: 14 Temperature: 97.7 F Patient is:: Awake, Drowsy Stable to PACU at:: 12:39
--- NOTE | 2021-10-26 12:19 | P.OP_ITS ---
Date of procedure: 10/26/21 Pre-op Diagnosis:: Retained placenta Post-op Diagnosis:: Retained placenta Procedure performed:: Manual removal of retained placenta Surgeon:: Efrain Neal MD LICENSED SOCIAL WORKER:: Beck Piña Anesthesia: epidural Estimated blood loss (mL): 500 Clinical Note:: She is a 30-year-old 8 now para 5 aborta 3 who was about an hour post vaginal delivery. She had retained placenta and despite an attempted manual removal and her delivery room I was not able to remove the placenta. As result of that we took her to the operating room for a manual removal. Operative findings:: When she was taken the operating room and I arrived in the operating room she was bleeding profusely and I was able to easily remove her placenta manually. It was intact. Operative note:: She is taken operating room where epidural anesthesia was found be adequate. She was prepped with normal sterile fashion lithotomy position. I was able to reach inside the uterus and grasped the placenta and remove it in its entirety. I did a complete sweep of the entire endometrial cavity and I was not able to feel any retained placenta. She tolerated procedure well and was taken to the recovery room in excellent condition. All sponge, and instrument counts were correct. The estimated blood loss approximately 500 cc intraoperatively. She received 1 dose of Methergine. She will continue with her IV oxytocin. Condition: stable Disposition: PACU Specimens:: Retained placenta Complications:: None
--- NOTE | 2021-10-26 12:33 | HMH.ANESI ---
[facility] Anesthesia Record Part I Intake, IV Amount: 600 Estimated blood loss (mL): 500 Urine output (mL): 0 Blood Pressure: 126/79 SaO2: 100 Pulse Rate: 110 Respiratory Rate: 16 Temperature: 97.7 F Patient is:: Awake, Stable Stable to PACU at:: 12:30
[2021-10-26 18:09] LABS: Hematocrit 26.9 % (37.0-47.0); Hemoglobin 8.5 g/dL (12.2-16.2)
[2021-10-27] VITALS (23 sets, daily range): BP systolic 90–133; BP diastolic 51–81; PULSE 74–106; RESP 16–18; TEMP 36.1–36.8; O2SAT 98–100
[2021-10-27 07:03] LABS: Hematocrit 20.2 % (37.0-47.0)
[2021-10-27 07:04] LABS: Hemoglobin 6.4 g/dL (12.2-16.2)
--- NOTE | 2021-10-27 07:05 | PC.NURSE ---
CRITICAL H&H 6.4/20.2 CALLED AT 0703 FROM MAURILIO IN THE LAB. PTS NAME, AND REPEATED AND VERIFIED X2
--- NOTE | 2021-10-27 08:16 | P.PN_ITS ---
[facility] Anesthesia Record Part II Discharge Time: 13:05 Destination: Obstetric PACU nurse assessment reviewed?: Yes Patient Condition:: Good Anesthesia Complications:: None Swallowing reflex intact?: Yes Cyanosis?: No Blood Pressure: 133/81 Pulse Rate: 103 Temperature: 97 F Mental Status: Alert & Oriented Pain level:: 0 Nausea and/or vomitting:: None Intake, IV Amount: 0
--- NOTE | 2021-10-27 09:35 | P.PN_ITS ---
Internal Medicine - PN: Subj *Date: 10/27/21 *Time: 09:35 Interval history: She is doing well this morning although she feels slightly lightheaded. Her hemoglobin was low and as result of that we are giving her 2 units of packed red blood cells. Her hemoglobin prior to delivery was 9.4. She says that she did not take any iron tablets throughout the . Otherwise she is doing well. Exam Vital signs and Labs for Last 24 Hours: Temp Pulse Resp BP Pulse Ox 98.1 F 90 18 104/68 L 99 10/27/21 09:05 10/27/21 09:05 10/27/21 09:05 10/27/21 09:05 10/27/21 09:05 Laboratory Results - last 24 hr 10/26/21 05:30: Blood Type O Positive, Antibody Screen Negative, Crossmatch (AHG) See Detail 10/26/21 17:55: Hgb 8.5 L, Hct 26.9 L 10/27/21 06:15: Hgb 6.4 L* D, Hct 20.2 L* I & O for Last 24 hours: Intake & Output 10/24/21 10/25/21 10/26/21 10/27/21 11:59 11:59 11:59 11:59 Intake Total 600 / 600 Output Total 600 / 600 Balance 0 / 0 Weight 191 lb Microbiology Reports for the Last 24 Hours: Microbiology 10/26/21 05:30 Urine,Clean Catch Urine Culture - Preliminary NO GROWTH AFTER 24 HOURS - *Routine HEENT Exam Head: Present: normocephalic Eye: Present: EOMI, PERRL ENT: Present: mucous membranes moist Assessment and Plan (1) Normal delivery at term Status: Acute Category: Medical Code(s): O80 - Encounter for full-term uncomplicated delivery (2) Anemia affecting , antepartum Status: Acute Category: Medical Code(s): O99.019 - Anemia complicating pr egnancy, unspecified trimester - Assessment and plan all Dx Assessment and Plan for all problems:: She received 2 units of blood today. We will plan to send her home tomorrow. She does complain of some mild bronchitis so we will go ahead and start an inhaler.
[2021-10-27 13:42] LABS: Hemoglobin 8.4 g/dL (12.2-16.2)
--- NOTE | 2021-10-27 14:09 | SW/DCPLANNER ---
Addendum entered by Suly Chavez 10/28/21 15:49: Infant cord screen is NEGATIVE. Original Note: I received a referral for this patient regarding: THC at first visit and limited care (total of 6 visits). male (Rodrick Monge II) was born on 10/26/2021. Infant's father (Rodrick Monge 09/18/89) was present in room during the time of my visit. Patient admits to using THC but stopped after she found out she was . Patient stated that she missed 2-[address] Neal due to being ill. Patient, Rodrick and infant and four other children (Corky Haleigh 11/04/09, Johnny Haleigh Jr 04/28/14, Dariel Haleigh 05/30/17 and Cecil Monge 11/01/19) will reside at [address] [place] [address]. Patient contact number is [phone]. Patient stated no previous Social Service involvement with other children. Patient is established with [facility] and has the following items at home: crib, carseat, clothing, diapers and will be bottle feeding. Patient's nurse (Guerda) stated that patient and father are appropriate with . I will follow up with patient if any future needs/questions arise. Patient is planned to discharge home later tomorrow pending no setbacks.
[2021-10-28 02:58] VITALS: BP 96/63; PULSE 93; RESP 17; TEMP 36.4; O2SAT 98
[2021-10-28 08:00] VITALS: BP 122/73; PULSE 93; RESP 16; TEMP 36.6; O2SAT 98
--- NOTE | 2021-10-28 09:37 | HMH.OBDCSM ---
General - General Admission date:: 10/26/21 Discharge date: 10/28/21 HPI - History of Present Illness History of present illness: She is a 31-year-old 8 now para 5 aborta 3 who was 39 weeks gestational age. We elected to bring her in for induction of labor at term. Hospital Course Hospital Course: She was started on IV oxytocin had her membranes ruptured. Under labor epidural progressed to full dilation and delivered spontaneously a liveborn male child at 10:52 AM on the morning of October 26, 2021. The baby weighed 6 pounds 2 ounces and was 19 inches long. He had Apgars of 8 at 1 minute and 9 at 5 minutes. She had a retained placenta and as result of that we took her to the operating room for a manual removal. When I arrived in the operating room she was bleeding profusely and the placenta had detached. I was able to grasp it and remove it in its entirety. Subsequently she had a low hemoglobin and has received 2 units of packed red blood cells. Prior to her delivery she had a hemoglobin of 9.4. She has done well and has remained afebrile throughout her hospitalization. She is eating and drinking and ambulating. She is bottlefeeding. She has O Rh+ blood, she is well immune and was group B streptococcus negative. She is discharged home to follow-up with me in approximately 2 weeks time. She will continue with her vitamins and iron. She was given the usual instructions with respect to limiting her activity, driving and sexual activity. We will continue with iron tablets and have given her a prescription for this. She will also continue with her vitamins. Her condition on discharge is stable and improved. Objective Vital signs: Temp Pulse Resp BP Pulse Ox 97.8 F 93 H 16 122/73 98 10/28/21 08:00 10/28/21 08:00 10/28/21 08:00 10/28/21 08:00 10/28/21 08:00 no acute distress - *Routine HEENT Exam Head: Present: normocephalic Eye: Present: EOMI, PERRL ENT: Present: mucous membranes moist Results Labs on day of discharge: Labs from last 24 hours 10/27/21 10/26/21 13:19 05:30 Hgb 8.4 L D Hct 26.0 L Blood Type O Positive Antibody Screen Negative Crossmatch (AHG) See Detail DS: Diagnosis - Discharge Diagnosis (1) Normal delivery at term Status: Acute (2) Anemia affecting , antepartum Status: Acute (3) Retained placenta with hemorrhage, condition Status: Acute Discharge Plan - Patient Discharge Instructions ACTIVITY: No heavy lifting DIET: continue same diet Additional Instructions: NOTHING IN THE VAGINA FOR 6 WEEKS NO TUB BATHS DRINK PLENTY OF FLUIDS Patient Instructions: Depression, Hemorrhage, DI for Labor and Delivery, Vaginal , DI for Pre-eclampsia, [facility] Post Discharge Instructions, Preventing the Spread of Coronavirus Discharge Instructions - Follow up Plan Follow up with: Efrain Neal MD [Staff Physician] - Disposition: Home, Self-Care Condition at discharge:: Stable Home Medications: Home Medications Medication Instructions Recorded Confirmed Type Ferrous Sulfate [Ferrous Sulfate 325 mg PO BID #60 tab 10/28/21 Rx 325mg Tablet] Prescriptions/Medication Reconciliation: New Ferrous Sulfate [Ferrous Sulfate 325mg Tablet] 325 mg PO BID #60 tab - Problem Reconciliation Problems Reviewed?: Yes
== END 2021-10-28 11:54 | disposition home or self-care (01) | DRG 806 ==
PROVIDERS: Admitting Provider Nurse Practitioner Obstetrics & Gynecology; Visit Provider Nurse Practitioner Obstetrics & Gynecology
PROC: 10D17Z9 Manual Extraction of Products of Conception, Retained, Via Natural or Artificial Opening (ICD-10-PCS; principal; 2021-10-26 13:00)
DX: O69.2XX0 Labor and delivery complicated by other cord entanglement, with compression, not applicable or unspecified (principal); O72.1 Other immediate postpartum hemorrhage; Z37.0 Single live birth; D62 Acute posthemorrhagic anemia; Z3A.39 39 weeks gestation of pregnancy; O90.81 Anemia of the puerperium
CPT/HCPCS: 59409; 59414; 36415; 59025; 80305; 81001; 85014; 85018; 85025; 86850; 87086; 94761; C1758; C9803; G0283; J2405; P9016; U0003; U0005

== ENCOUNTER 2021-11-10 03:56 | Emergency (ER) | payer OTHER, SELFPAY ==
[2021-11-10 03:57] VITALS: BP 107/51; PULSE 69; RESP 18; TEMP 36.7; O2SAT 100; BMI 27.3
[2021-11-10 04:32] LABS: Microscopic, Urine URINE MICROSCOPIC (MICROSCOPIC)
--- NOTE | 2021-11-10 04:40 | XR_ITS ---
PROCEDURE INFORMATION: Exam: XR Chest Exam date and time: 11/10/2021 4:56 AM Age: 31 years old Clinical indication: Sternal or substernal pain; Additional info: Chest pain TECHNIQUE: Imaging protocol: XR of the chest. Views: 2 views. COMPARISON: CR CXR CHEST(2 VIEWS-NOT PORTABLE) 04/08/2016 12:52 AM FINDINGS: Lungs: Unremarkable. No consolidation. Pleural spaces: Unremarkable. No pleural effusion. No pneumothorax. Heart/Mediastinum: Unremarkable. No cardiomegaly. Bones/joints: Unremarkable. IMPRESSION: No acute findings.
--- NOTE | 2021-11-10 04:41 | CT_ITS ---
PROCEDURE INFORMATION: Exam: CT Abdomen And Pelvis With Contrast Exam date and time: 11/10/2021 5:09 AM Age: 31 years old Clinical indication: Abdominal pain; Localized; Upper TECHNIQUE: Imaging protocol: Computed tomography of the abdomen and pelvis with contrast. Radiation optimization: All CT scans at this facility use at least one of these dose optimization techniques: automated exposure control; mA and/or kV adjustment per patient size (includes targeted exams where dose is matched to clinical indication); or iterative reconstruction. Contrast material: ISOVUE; Contrast volume: 75 ml; Contrast route: IV; COMPARISON: ABDPELW/O CT ABD PELVIS W/O CONTRAST 04/07/2016 2:42 AM FINDINGS: Liver: Normal. No mass. Gallbladder and bile ducts: Normal. No calcified stones. No ductal dilation. Pancreas: Normal. No ductal dilation. Spleen: Normal. No splenomegaly. Adrenal glands: Normal. No mass. Kidneys and ureters: There is mild prominence of the right renal collecting system and ureter however no calcified nephrolithiasis is noted. This is also unchanged from the prior study. Stomach and bowel: Unremarkable. No obstruction. No mucosal thickening. Appendix: No evidence of appendicitis. Intraperitoneal space: Unremarkable. No free air. No significant fluid collection. Vasculature: Unremarkable. No abdominal aortic aneurysm. Lymph nodes: Unremarkable. No enlarged lymph nodes. Urinary bladder: Unremarkable as visualized. Reproductive: Unremarkable as visualized. Bones/joints: Unremarkable. No acute fracture. Soft tissues: Unremarkable. IMPRESSION: 1. No definite acute process noted to explain the patient's abdominal pain. 2. Again noted is mild prominence of the right renal collecting system and ureter however no stones or masses identified. This is also unchanged from the patient's prior study.
[2021-11-10 04:42] LABS: Appearance,Urine CLOUDY (Clear); Bilirubin,Urine Negative (Negative); Blood, Urine 2+ (Negative); Color,Urine YELLOW (Yellow); Glucose,Urine (UA) Negative (Negative); Ketones,Urine Negative (Negative); Leukocyte Esterase,Urine 3+ (Negative); Nitrate,Urine Negative (Negative); Protein,Urine Negative (Negative); Urobilinogen,Urine 0.2 EU/dl (0.2)
[2021-11-10 04:47] LABS: Coronavirus 19, PCR Not Detected (NotDetected); Influenza A, PCR Not Detected (NotDetected); Influenza B, PCR Not Detected (NotDetected)
[2021-11-10 04:52] LABS: Basophils # 0.1 K/mm3 (0-0.2); Basophils % 1.3 % (0.1-2.0); Eosinophils # 0.2 K/mm3 (0.0-0.4); Eosinophils % 2.4 % (0.1-12.0); Hematocrit 34.9 % (37.0-47.0); Hemoglobin 11.2 g/dL (12.2-16.2); Lymphocytes # 2.3 K/mm3 (0.7-4.5); Lymphocytes % 27.5 % (10-50); Mean Corpuscular HGB Conc 32.2 g/dL (31.8-35.4); Mean Corpuscular Hemoglobin 24.3 pg (27.0-31.2); Mean Corpuscular Volume 75.6 fl (81-99); Mean Platelet Volume 8.6 fl (7.4-10.4); Monocytes # 0.3 K/mm3 (0.1-1.0); Monocytes % 3.3 % (1.7-9.3); Neutrophils # 5.4 K/mm3 (1.8-7.8); Neutrophils % 65.5 % (37.0-80.0); Platelet Count 373 K/mm3 (142-424); Red Blood Count 4.61 M/mm3 (4.20-5.40); Red Cell Distribution Width 17.8 % (11.5-17.5); White Blood Count 8.2 K/mm3 (4.8-10.8)
[2021-11-10 04:53] LABS: Urine Pregnancy, HCG Qual. Negative (Negative)
[2021-11-10 04:56] LABS: Alanine Aminotransferase 32 U/L (12-78); Albumin Level 3.6 g/dl (3.5-5.0); Albumin/Globulin Ratio 1.4 (1.1-1.8); Alkaline Phosphatase 153 U/L (38-126); Amylase 83 U/L (30-110); Anion Gap 8.8 mEq/L (5-15); Aspartate Amino Transferase 50 U/L (14-36); Bilirubin,Total 0.3 mg/dl (0.2-1.3); Blood Urea Nitrogen 17 mg/dl (7-17); Calcium 8.8 mg/dl (8.4-10.2); Carbon Dioxide 30 mmol/L (22.0-30.0); Chloride 105 mmol/L (98-107); Creatinine Clearance Estimated 117 mL/min (50-200); Estimated Glomerular Filt Rate 73 ml/min (>60); GFR (African American) 88 ML/MIN (>60); Globulin 2.5 g/dL (1.3-3.2); Glucose 97 mg/dl (74-100); Lipase 219 U/L (23-300); Potassium 3.8 mmoL/L (3.5-5.1); Sodium 140 mmol/L (136-145); Total Protein,Serum 6.1 g/dl (6.3-8.2)
[2021-11-10 05:01] LABS: C-Reactive Protein 5.1 mg/L (0-4)
[2021-11-10 05:15] LABS: Procalcitonin 0.032 ng/mL (0.0-2.0)
[2021-11-10 05:26] LABS: Bacteria,Urine 2+ /lpf; Mucus,Urine 1+ /lpf; Trichomonas,Urine 1+ /lpf; WBC,Urine 20-50 #/hpf (0-3)
[2021-11-10 05:27] LABS: Erythrocyte Sedimentation Rate 16 mm/hr (0-20)
--- NOTE | 2021-11-10 06:24 | HMH.EDNVD ---
ED Disposition Clinical Impression: Trichomonas vaginitis UTI (urinary tract infection) Qualifiers: Urinary tract infection type: site unspecified Hematuria presence: without hematuria Qualified Code(s): N39.0 - Urinary tract infection, site not specified Disposition: Home, Self-Care Condition on Discharge: Good Instructions: DI for Trichomoniasis, DI for Acute Abdominal Pain Additional Instructions: fluids and see pcp for follow up and check with fiscal accountant/pcp for follow up Prescriptions: levoFLOXacin [Levaquin 500mg tab] 500 mg PO DAILY #7 tab Transmission Status: Pending to [id number] metroNIDAZOLE [metroNIDAZOLE 500mg Tablet] 500 mg PO TID #42 tab Transmission Status: Pending to [id number] Referrals: Provider,Referral, [Primary Care Provider] - - Critical Care Critical Care Time: No Attestation: On 11/10/21, the high probability of a clinically significant, sudden or life threatening deterioration of the following system(s) required my full and direct attention, intervention and personal management. The time I documented below is in addition to time spent performing reported procedures but includes the following listed in this critical care notation. Medical Decision Making - Medical Records Medical records reviewed: Yes: I reviewed the patient's medical records. - Han Inquiry Pt receiving controlled substance: No Vital Signs: 11/10/21 03:57 Temperature 98.1 F Temperature Source Oral Pulse Rate [Left Radial] 69 Respiratory Rate 18 Blood Pressure [Right Arm] 107/51 L Blood Pressure Mean [Right Arm] 69 02 Sat by Pulse Oximetry 100 Oxygen Delivery Method Room Air - Lab Data Lab results reviewed: Yes: I reviewed the patient's lab results. Lab Results 11/10/21 04:05: Urine Color Yellow, Urine Appearance Cloudy, Urine pH 7.0, Ur Specific [place] 1.020, Urine Protein Negative, Urine Glucose (UA) Negative, Urine Ketones Negative, Urine Blood 2+, Urine Nitrate Negative, Urine Bilirubin Negative, Urine Urobilinogen 0.2, Ur Leukocyte Esterase 3+ A, Urine RBC 5-10, Urine WBC 20-50, Ur Squamous Epith Cells 5-10, Urine Bacteria 2+, Urine Mucus 1+, Urine Trichomonas 1+ 11/10/21 04:30: WBC 8.2, RBC 4.61, Hgb 11.2 L, Hct 34.9 L, MCV 75.6 L, MCH 24.3 L, MCHC 32.2, RDW 17.8 H, Plt Count 373, MPV 8.6, Neut % (Auto) 65.5, Lymph % (Auto) 27.5, Gray % (Auto) 3.3, Eos % (Auto) 2.4, Baso % (Auto) 1.3, Neut # (Auto) 5.4, Lymph # (Auto) 2.3, Gray # (Auto) 0.3, Eos # (Auto) 0.2, Baso # (Auto) 0.1 11/10/21 04:30: Sodium 140, Potassium 3.8, Chloride 105, Carbon Dioxide 30, Anion Gap 8.8, BUN 17, Creatinine 0.90, Estimated Creat Clear 117, Estimated GFR 73, Est GFR ( Amer) 88, Glucose 97, Calcium 8.8, Total Bilirubin 0.3, AST 50 H, ALT 32, Alkaline Phosphatase 153 H, C-Reactive Protein 5.1 H, Total Protein 6.1 L, Albumin 3.6, Globulin 2.5, Albumin/Globulin Ratio 1.4, Amylase 83, Lipase 219 11/10/21 04:30: SARS-CoV-2 (PCR) Not detected, Influenza A Untype (PCR) Not detected, Influenza Type B (PCR) Not detected 11/10/21 04:30: ESR 16 11/10/21 04:30: Procalcitonin 0.032 11/10/21 04:30: Lactate 1.0 11/10/21 04:30: Urine HCG, Qual Negative Result diagrams: 11/10/21 04:30 11/10/21 04:30 Orders (Tests/Meds): ED MEDICATIONS Generic Name Dose Route Start Last Admin Trade Name Freq PRN Reason Stop Dose Admin Lactated Ringer's 1,000 mls @ 999 mls/hr 11/10/21 04:45 11/10/21 04:40 Lactated Ringer's 1000 Ml Bag IV 11/10/21 05:45 999 mls/hr .[id number] JEFFREY Administration Levofloxacin 500 mg 11/10/21 06:24 Levofloxacin 500mg Tab PO 11/10/21 06:25 ONCE ONE Sodium Chloride 8 ml 11/10/21 04:38 Sodium Chloride 0.9% 10ml Vial IV 12/10/21 04:37 NEEDED PRN dilute pepcid Discontinued Medications Generic Name Dose Route Start Last Admin Trade Name Freq PRN Reason Stop Dose Admin Famotidine 20 mg 11/10/21 04:38 11/10/21 04:40 Famotidine 20mg/2ml Via
[2021-11-10 06:37] VITALS: BP 113/88; PULSE 89; RESP 16; TEMP 37.2; O2SAT 99
== END 2021-11-10 06:49 | disposition home or self-care (01) ==
PROVIDERS: Emergency Provider Emergency Medicine
DX: A59.01 Trichomonal vulvovaginitis (principal); N30.00 Acute cystitis without hematuria
CPT/HCPCS: 71046; 74177; 80053; 81001; 81025; 82150; 83605; 83690; 84145; 85025; 85651; 86140; 87040; 87086; 96365; 96375; 99284; C9803; J2405; Q9967; U0003; U0005

== ENCOUNTER 2023-08-11 14:32 | Outpatient (CLI) | payer OTHER, SELFPAY ==
[2023-08-11 21:08] LABS: HCG,Quantitative 106730 mIU/ml (0-5.42)
== END 2023-08-11 23:59 ==
LOC: LAB 14:33
PROVIDERS: Visit Provider Obstetrics & Gynecology
DX: N92.6 Irregular menstruation, unspecified (principal)
CPT/HCPCS: 36415; 84144; 84702

== ENCOUNTER 2023-08-14 15:04 | Outpatient (CLI) | payer OTHER, SELFPAY ==
[2023-08-14 15:50] LABS: Basophils % 0.3 % (0.1-2.0); Eosinophils % 0.5 % (0.1-12.0); Hematocrit 36.8 % (37.0-47.0); Hemoglobin 12.5 g/dL (12.2-16.2); Lymphocytes # 1.5 K/mm3 (0.7-4.5); Lymphocytes % 16.8 % (10-50); Mean Corpuscular HGB Conc 34.1 g/dL (31.8-35.4); Mean Corpuscular Hemoglobin 27.9 pg (27.0-31.2); Mean Corpuscular Volume 81.9 fl (81-99); Mean Platelet Volume 9.1 fl (7.4-10.4); Monocytes # 0.2 K/mm3 (0.1-1.0); Monocytes % 2.4 % (1.7-9.3); Neutrophils % 80.1 % (37.0-80.0); Platelet Count 224 K/mm3 (142-424); Red Blood Count 4.49 M/mm3 (4.20-5.40); White Blood Count 8.8 K/mm3 (4.8-10.8)
[2023-08-15 08:18] LABS: HIV Screen 4th Generation wRfx Non Reactive (Non Reactive)
[2023-08-15 12:40] LABS: Rapid Plasma Reagin Ab Titer Non Reactive titer (NonRea<1:1)
[2023-08-17 12:22] LABS: Hepatitis B Surface Antigen Negative
[2023-08-17 12:23] LABS: Hepatitis C Antibody Non Reactive; Rubella Antibodies, IgG 0.97
== END 2023-08-14 23:59 ==
LOC: LAB 15:05
PROVIDERS: Visit Provider Obstetrics & Gynecology
DX: Z34.91 Encounter for supervision of normal pregnancy, unspecified, first trimester (principal); Z3A.10 10 weeks gestation of pregnancy
CPT/HCPCS: 36415; 85025; 86593; 86703; 86762; 86850; 87340; 87380; G0432

== ENCOUNTER 2023-10-19 16:41 | Outpatient (CLI) | payer OTHER, SELFPAY | END 2023-10-19 23:59 | LOC: LAB.DROPOF 16:41 | PROVIDERS: PCP Obstetrics & Gynecology; Visit Provider Obstetrics & Gynecology | DX: O26.893 Other specified pregnancy related conditions, third trimester (principal); Z3A.38 38 weeks gestation of pregnancy | CPT/HCPCS: 87086 ==

== ENCOUNTER 2023-10-26 13:02 | Outpatient (CLI) | payer OTHER, SELFPAY ==
--- NOTE | 2023-10-26 13:04 | US_ITS ---
PROCEDURE: US OB /MATERNAL DETAIL CLINICAL INDICATION: 20 week anatomy scan COMPARISON: No exams were available for comparison FINDINGS: Transabdominal sonographic images of the pelvis were obtained. From her established due date she is 20 weeks 4 days. Single viable intrauterine gestation. Cephalic position. Placenta: Posteriorplacenta grade 1. There is an average amount of fluid. The cervix appears satisfactory. Closed and measuring 3.3 cm in length. Complete survey performed and was unremarkable on the submitted images as in PACS. No discrete anomalies identified on survey imaging by technologist. Active fetus. Three-vessel cord with satisfactory umbilical cord insertion. 4- chamber heart noted. Situs, aortic arch, LVOT, RVOT, three-vessel view appear normal. Survey of brain & ventricles Unremarkable. Cerebellum, thalamus, choroid plexus, cisterna magna appear normal. Face and neck survey unremarkable. Profile, nasion, lips and nose appeared normal. Diaphragm and chest views unremarkable. Abdomen: Both kidneys noted and unremarkable. Stomach and bladder noted and satisfactory. Spine: Survey of the spine satisfactory with no anomalies identified nor imaged. Cervical, thoracic, lower spine appear normal. Both arms and legs noted. Amniotic Fluid: Adequate. Measurements: Average ultrasound age 19weeks 2days. Estimated due date by ultrasound age 0903/19/2024. Estimated weight 300g BPD = 18weeks 3days HC = 18weeks 5days AC = 19weeks 5days FL = 19weeks 6days Growth Percentile= 7 Heart Rate = 150bpm Cerebellum = 19weeks Humerus = 20weeks HC/AC is 1.1 FL/BPD is 0.78 FL/AC is 0.22 IMPRESSION: 1. Viable fetus in the cephalic presentation with a posterior placenta grade 1. 2. The fluid is within normal limits. 3. Anatomical scan appears normal. 4. biometry is consistent with the dates. 5. BPD and head circumference are less than the 2nd percentile. Would suggest repeat scan in 2-4 weeks since the measurements were difficult to obtain due to the position. Dictated by: Efrain Neal MD 10/27/2023 08:26 Efrain Neal MD in [facility] 10/27/2023 08:26
== END 2023-10-26 23:59 | disposition home or self-care (01) ==
LOC: RAD 13:03
PROVIDERS: Visit Provider Obstetrics & Gynecology
DX: O26.892 Other specified pregnancy related conditions, second trimester (principal); Z3A.20 20 weeks gestation of pregnancy
CPT/HCPCS: 76811

== ENCOUNTER 2023-11-09 13:59 | Outpatient (CLI) | payer OTHER, SELFPAY ==
--- NOTE | 2023-11-09 14:10 | US_ITS ---
PROCEDURE: US OB FOLLOW UP CLINICAL INDICATION: Rescan measurements due to position COMPARISON: US US OB /MATERNAL DETAIL from 10/26/2023 FINDINGS: Transabdominal sonographic images of the pelvis were obtained. From her established due date she is 22 weeks 4 days. Single viable intrauterine gestation. Cephalic position. Placenta: Posteriorplacenta grade 1. There is an average amount of fluid. The cervix appears satisfactory. Closed and measuring 4.4 cm in length. Anatomical survey performed and was unremarkable on the submitted images as in PACS. No discrete anomalies identified on survey imaging by technologist. Active fetus. Three-vessel cord with satisfactory umbilical cord insertion. 4- chamber heart noted. Situs, aortic arch, LVOT, RVOT, three-vessel view appear normal. Survey of brain & ventricles not performed today. Face and neck survey unremarkable. Profile, nasion, appeared normal. Diaphragm and chest views unremarkable. Abdomen: Both kidneys noted and unremarkable. Stomach and bladder noted and satisfactory. Spine: Not performed today. Amniotic Fluid: Adequate. Measurements: Average ultrasound age 21weeks 3days. Estimated due date by ultrasound age 0903/18/2024. Estimated weight 436g BPD = 21weeks 1day, 5 percentile HC = 20weeks 5days, < 2 percentile AC = 21weeks 3days, 11 percentile FL = 22weeks 2days, 26 percentile Growth Percentile= 8 Heart Rate = 155bpm HC/AC is 1.13 FL/BPD is 0.76 FL/AC is 0.23 IMPRESSION: 1. Viable fetus in the cephalic presentation with a posterior placenta grade 1. 2. The fluid is within normal limits. 3. Limited anatomical scan appears normal. 4. Measurements of the head still are behind by 1 and 1/2 weeks. She did have an early ultrasound at 9 weeks and the dates were off by about 5 days. This may have contributed to the discrepancy in growth at this early stage. Dictated by: Efrain eNal MD 11/09/2023 17:35 Efrain Neal MD in [facility] 11/09/2023 17:35
== END 2023-11-09 23:59 | disposition home or self-care (01) ==
LOC: RAD 14:00
PROVIDERS: Visit Provider Obstetrics & Gynecology
DX: O26.892 Other specified pregnancy related conditions, second trimester (principal); Z3A.22 22 weeks gestation of pregnancy; Z36.2 Encounter for other antenatal screening follow-up
CPT/HCPCS: 76816

== ENCOUNTER 2023-12-07 12:58 | Outpatient (CLI) | payer OTHER, SELFPAY ==
--- NOTE | 2023-12-07 12:59 | US_ITS ---
PROCEDURE: US OB FOLLOW UP CLINICAL INDICATION: OB US Growth, SD Ratio with LOGAN for SGA COMPARISON: US US OB /MATERNAL DETAIL from 10/26/2023 US US OB FOLLOW UP from 11/09/2023 FINDINGS: Transabdominal sonographic images of the pelvis were obtained. The following parameters are obtained: From her established due date she is 26weeks 4days Viable fetus in the cephalic presentation with a posterior placenta grade 1. The cervix measures 3.2 cm. heart rate: 143bpm bpm. BPD: 25weeks 0 days, 4 percentile HC: 25weeks 1day, < 2 percentile AC: 25weeks 4days, 13 percentile FL: 26weeks 0 days, 17 percentile HC/AC: 1.1 FL/BPD: 0.77 FL/AC: 0.23 Growth percentile: 9 Amniotic fluid index: Normal No obvious anomalies evident. profile seen, stomach, bladder, three-vessel cord, four chamber heart appear normal. IMPRESSION: 1. Viable fetus in the cephalic presentation with a posterior placenta grade 1. 2. The fluid is within normal limits. 3. There has been good interval growth with the fetus currently 9th percentile. 4. The head however remains unusually small. 5. Would suggest a maternal medicine consult. 6. Limited anatomical scan appears normal. Dictated by: Efrain Neal MD 12/08/2023 09:07 Efrain Neal MD in [facility] 12/08/2023 09:07
--- NOTE | 2023-12-07 12:59 | US_ITS ---
PROCEDURE: US SD RATIO UMBILCAL ARTERY CLINICAL INDICATION: OB US Growth, SD Ratio with LOGAN for SGA COMPARISON: US US OB FOLLOW UP from 11/09/2023 US US OB FOLLOW UP from 12/07/2023 FINDINGS: Transabdominal sonographic images of the pelvis were obtained for completeness. SD ratio is not done earlier today.. There is a single live fetus in the cephalic presentation. SD ratio is 3.5-3.8. IMPRESSION: 1. SD ratio is normal at 3.5-3.8 . Dictated by: Efrain Neal MD 12/08/2023 08:57 Efrain Neal MD in [facility] 12/08/2023 08:57
== END 2023-12-07 23:59 | disposition home or self-care (01) ==
LOC: RAD 12:59
PROVIDERS: Visit Provider Obstetrics & Gynecology
DX: O36.5920 Maternal care for other known or suspected poor fetal growth, second trimester, not applicable or unspecified (principal); O99.012 Anemia complicating pregnancy, second trimester; Z3A.26 26 weeks gestation of pregnancy
CPT/HCPCS: 76816; 76820

== ENCOUNTER 2024-01-19 09:30 | Outpatient (CLI) | payer OTHER, SELFPAY ==
--- NOTE | 2024-01-19 09:34 | US_ITS ---
PROCEDURE: US OB BIOPHYSICAL PROFILE CLINICAL INDICATION: IUGR COMPARISON: US US OB FOLLOW UP from 11/09/2023 US US OB FOLLOW UP from 12/07/2023 FINDINGS: Transabdominal sonographic images of the uterus were obtained. From her established due date she is 32weeks 5days. The following parameters are obtained: Viable Fetus in the cephalic presentation with a posterior placenta grade 2. Average ultrasound age is 31weeks 1day Estimated weight 1,627g Cervix measures 3.2 cm. Measurements: heart Rate = 140bpm BPD = 31weeks 0 days, 5 percentile HC = 31weeks 1day, <2 percentile AC = 30weeks 1day, <2 percentile FL = 31weeks 6days, 15 percentile HC/AC is 1.09 FL/BPD is 0.79 FL/AC is 0.24 4 percentile Amniotic fluid index: 11.1cm, MVP 3.56 cm Qualitative AFV:2 Breathing movements: 2 Gross Body Movements: 2 Tone: 2 Biophysical profile score: 8 Doppler evaluation of the umbilical artery: SD ratio: 2.33-3.3 Resistive index: 0.57 No obvious anomalies evident.Kidneys, profile, stomach, bladder, four-chamber heart, three-vessel cord appear normal. IMPRESSION: 1. Viable fetus in the cephalic presentation with a posterior placenta grade 2. 2. The fluid is within normal limits with an amniotic fluid index of 11.1 cm, MVP 3.56 cm. 3. Biophysical profile is 8/8 with good breathing movement and movement seen. 4. SD ratio is normal at 2.33-3.3. 5. Fetus is currently 4th percentile and the AC has fallen off its growth curve since the last ultrasound. Head remains small. 6. Limited anatomical scan appears normal. Dictated by: Efrain Neal MD 01/20/2024 12:41 Efrain Neal MD in [facility] 01/20/2024 12:41
== END 2024-01-19 23:59 | disposition home or self-care (01) ==
LOC: RAD 09:30
PROVIDERS: PCP Obstetrics & Gynecology; Visit Provider Obstetrics & Gynecology
DX: O36.5930 Maternal care for other known or suspected poor fetal growth, third trimester, not applicable or unspecified (principal); O99.013 Anemia complicating pregnancy, third trimester; Z3A.32 32 weeks gestation of pregnancy
CPT/HCPCS: 76816; 76819; 76820

== ENCOUNTER 2024-01-22 10:14 | Outpatient (CLI) | payer OTHER, SELFPAY ==
[2024-01-22 10:33] VITALS: BMI 27.3
[2024-01-22 10:34] VITALS: BMI 25.7
== END 2024-01-22 11:00 | disposition home or self-care (01) ==
LOC: OBOUT 10:15 → OB 10:16
PROVIDERS: Visit Provider Obstetrics & Gynecology
DX: O36.5930 Maternal care for other known or suspected poor fetal growth, third trimester, not applicable or unspecified (principal); Z3A.33 33 weeks gestation of pregnancy

== ENCOUNTER 2024-02-09 11:43 | Outpatient (CLI) | payer OTHER, SELFPAY ==
[2024-02-09 11:51] VITALS: BMI 27.9
--- NOTE | 2024-02-09 11:52 | US_ITS ---
PROCEDURE: US OB BIOPHYSICAL PROFILE CLINICAL INDICATION: Category 2 strip in the office COMPARISON: US US OB /MATERNAL DETAIL from 10/26/2023 US US OB FOLLOW UP from 11/09/2023 US US OB FOLLOW UP from 12/07/2023 US US SD RATIO UMBILCAL ARTERY from 12/07/2023 US US OB BIOPHYSICAL PROFILE from 01/19/2024 FINDINGS: Transabdominal sonographic images of the uterus were obtained. From her established due date she is 35weeks 5days. The following parameters are obtained: Viable Fetus in the cephalic presentation with a posterior placenta grade 2. The cervix measures 3.6 cm Measurements: heart Rate = 169bpm Amniotic fluid index: 8.47cm, MVP 4.28 cm. Qualitative AFV:2 Breathing movements: 2 Gross Body Movements: 2 Tone: 2 Biophysical profile score: 8 Doppler evaluation of the umbilical artery: SD ratio: 2.1-2.7 Resistive index: 0.52 No obvious anomalies evident.Kidneys, bladder, stomach, four-chamber heart, three-vessel cord appear normal. IMPRESSION: 1. Viable fetus in the cephalic presentation with a posterior placenta grade 2. 2. The fluid is within normal limits with an amniotic fluid index of 8.47 cm, MVP 4.28 cm. 3. Biophysical profile is 8/8 with good breathing movement and movement seen. 4. SD ratio is normal at 2.1-2.7. 5. Limited anatomical scan appears normal. Dictated by: Efrain Neal MD 02/10/2024 08:06 Efrain Neal MD in [facility] 02/10/2024 08:06
[2024-02-09 12:30] VITALS: BP 103/69; PULSE 76; RESP 20; TEMP 36.6; O2SAT 100; BMI 27.9
== END 2024-02-09 13:11 | disposition home or self-care (01) ==
LOC: OBOUT 11:46 → OB 11:47
PROVIDERS: Visit Provider Obstetrics & Gynecology
DX: O36.5930 Maternal care for other known or suspected poor fetal growth, third trimester, not applicable or unspecified (principal); Z3A.35 35 weeks gestation of pregnancy
CPT/HCPCS: 76819; 76820; G0463

== ENCOUNTER 2024-02-17 11:55 | Outpatient (CLI) | payer OTHER, SELFPAY ==
[2024-02-17 12:25] VITALS: BP 116/68; PULSE 98; RESP 18; TEMP 36.8; O2SAT 98; BMI 27.9
[2024-02-17 12:57] LABS: Microscopic, Urine URINE MICROSCOPIC (MICROSCOPIC)
[2024-02-17 13:07] LABS: Appearance,Urine CLEAR (Clear); Bilirubin,Urine Negative (Negative); Blood, Urine Negative (Negative); Color,Urine YELLOW (Yellow); Glucose,Urine (UA) Negative (Negative); Ketones,Urine Negative (Negative); Leukocyte Esterase,Urine 1+ (Negative); Nitrate,Urine Negative (Negative); Protein,Urine Negative (Negative)
[2024-02-17 13:18] LABS: Barbiturates Screen,Urine Negative ng/ml (<200)
[2024-02-17 13:19] LABS: Amphetamine/Metha Screen,Urine Negative ng/ml (<1000); Benzodiazepines Screen,Urine Negative ng/ml (<200)
[2024-02-17 13:20] LABS: Methadone Screen,Urine Negative ng/ml (<300)
[2024-02-17 13:21] LABS: Cannabinoid Screen,Urine Negative ng/ml (<50); Cocaine Screen,Urine Negative ng/ml (<300)
[2024-02-17 13:22] LABS: Opiate Screen,Urine Negative ng/ml (<300); Phencyclidine Screen,Urine Negative ng/ml (<25)
[2024-02-17 13:52] LABS: Bacteria,Urine Trace /lpf
== END 2024-02-17 13:34 | disposition home or self-care (01) ==
LOC: OBOUT 11:57 → OB 11:58
PROVIDERS: Visit Provider Obstetrics & Gynecology
DX: Q21.0 Ventricular septal defect (principal)
CPT/HCPCS: 80307; 81001; 86403; 87086; G0463

== ENCOUNTER 2024-02-19 21:44 | Inpatient (IN) | payer OTHER, SELFPAY ==
[2024-02-19 21:47] VITALS: BMI 27.9
[2024-02-19 21:54] VITALS: BP 116/67; PULSE 95; RESP 18; TEMP 36.9; O2SAT 100; BMI 27.9
[2024-02-19 22:15] LABS: Basophils % 0.5 % (0.1-2.0); Eosinophils % 0.5 % (0.1-12.0); Hematocrit 30.2 % (37.0-47.0); Hemoglobin 9.2 g/dL (12.2-16.2); Lymphocytes # 1.6 K/mm3 (0.7-4.5); Lymphocytes % 17.5 % (10-50); Mean Corpuscular HGB Conc 30.5 g/dL (31.8-35.4); Mean Corpuscular Hemoglobin 23.1 pg (27.0-31.2); Mean Corpuscular Volume 75.9 fl (81-99); Mean Platelet Volume 9.8 fl (7.4-10.4); Monocytes # 0.3 K/mm3 (0.1-1.0); Monocytes % 3.2 % (1.7-9.3); Neutrophils # 7.1 K/mm3 (1.8-7.8); Neutrophils % 78.3 % (37.0-80.0); Platelet Count 285 K/mm3 (142-424); Red Blood Count 3.98 M/mm3 (4.20-5.40); Red Cell Distribution Width 16.5 % (11.5-17.5); White Blood Count 9.1 K/mm3 (4.8-10.8)
[2024-02-19 22:15] LABS: Microscopic, Urine URINE MICROSCOPIC (MICROSCOPIC)
[2024-02-19 22:19] LABS: Appearance,Urine CLEAR (Clear); Bilirubin,Urine Negative (Negative); Blood, Urine Negative (Negative); Color,Urine YELLOW (Yellow); Glucose,Urine (UA) Negative (Negative); Ketones,Urine TRACE (Negative); Leukocyte Esterase,Urine Negative (Negative); Nitrate,Urine Negative (Negative); Protein,Urine Negative (Negative); Specific Gravity, Urine 1.025 (1.005-1.030)
[2024-02-19 22:28] LABS: Bacteria,Urine 1+ /lpf; Mucus,Urine 1+ /lpf
[2024-02-19 22:30] LABS: Amphetamine/Metha Screen,Urine Negative ng/ml (<1000)
[2024-02-19 22:31] LABS: Barbiturates Screen,Urine Negative ng/ml (<200)
[2024-02-19 22:32] LABS: Benzodiazepines Screen,Urine Negative ng/ml (<200); Cannabinoid Screen,Urine Negative ng/ml (<50)
[2024-02-19 22:33] LABS: Cocaine Screen,Urine Negative ng/ml (<300); Methadone Screen,Urine Negative ng/ml (<300)
[2024-02-19 22:34] LABS: Opiate Screen,Urine Negative ng/ml (<300)
[2024-02-19 22:35] LABS: Phencyclidine Screen,Urine Negative ng/ml (<25)
[2024-02-20] MEDS: OXYTOCIN/RINGERS LACTATE 30 UNITS/500 ML BAG IV (04:35)
[2024-02-20] MEDS: DEXTROSE 5%-LACTATED RINGERS 1,000 ML 125 ML IV (04:35)
--- NOTE | 2024-02-20 08:43 | EXP.HP ---
History of Present Illness *Admission Date: 02/19/24 *Reason for visit:: induction *History of present illness: Luann Ricardo is a 33-year-old at 37 weeks and 2 days gestation who presented to labor and delivery for a scheduled induction secondary to IUGR. This pregnacy was followed by MFM for IUGR, hx of 18 wk loss and a VSD. On presentation patient endorsed good movement and denies any leakage of fluid or vaginal bleeding. O+, antibody negative, rubella equivocal, hepatitis B negative, hepatitis C negative, RPR negative, HIV negative 1 hour GTT: did not complete GBS negative PFSH PFS Disclaimer: The information contained in this section may have been updated after the patient was seen, as this information can be updated by other users. Medical History Bartholin gland cyst No significant past medical history Surgical History No significant past surgical history Family History Other Thyroid disorder Social History Smoking Status: Never smoker alcohol intake: never substance use type: marijuana current occupational status: employed Travel in the last 8 weeks: None Review of Systems Review of Systems Review of systems (narrative): Review of Systems Constitutional: Denies fever, chills, and sweats Eyes: Denies vision change/ pain Respiratory: Denies cough and shortness of breath Cardiovascular: Denies chest pain and lightheadedness Gastrointestinal: denies abdominal pain. Denies nausea, vomiting. Genitourinary: Denies dysuria and incontinence Musculoskeletal: Denies shoulder pain and back pain Neurological: Denies change in speech or headaches Meds Home Medications and Allergies Home Medications ?Medication ?Instructions ?Recorded ?Confirmed ?Type vits no.126-ferrous fum 1 tab PO DAILY #30 tabs 08/14/23 02/20/24 Rx 28 mg iron-folic acid 800 mcg tablet (Classic ) New Prescriptions to Start Prescriptions: Allergies Allergy/AdvReac Type Severity Reaction Status Date / Time doxycycline [DOXYCYCLINE] Allergy Intermediate VOMITING Verified 02/09/24 10:35 Exam Data for Last 24 hours Vital signs and Labs for Last 24 Hours: Temp Pulse Resp BP Pulse Ox O2 Del Method 98.5 F 95 H 18 116/67 100 Room Air 02/19/24 21:54 02/19/24 21:54 02/19/24 21:54 02/19/24 21:54 02/19/24 21:54 02/19/24 21:54 Laboratory Results - last 24 hr 02/19/24 21:53: Urine Color Yellow, Urine Appearance Clear, Urine pH 6.0, Ur Specific [place] 1.025, Urine Protein Negative, Urine Glucose (UA) Negative, Urine Ketones Trace, Urine Blood Negative, Urine Nitrate Negative, Urine Bilirubin Negative, Urine Urobilinogen 2.0, Ur Leukocyte Esterase Negative, Urine WBC 3-5, Ur Squamous Epith Cells 3-5, Urine Bacteria 1+, Urine Mucus 1+, Urine Opiates Screen Negative, Urine Methadone Screen Negative, Ur Barbituates Screen Negative, Ur Phencyclidine Scrn Negative, Ur Amphetamines Screen Negative, U Benzodiazepines Scrn Negative, Urine Cocaine Screen Negative, U Marijuana (THC) Screen Negative 02/19/24 22:06: WBC 9.1, RBC 3.98 L, Hgb 9.2 L, Hct 30.2 L, MCV 75.9 L, MCH 23.1 L, MCHC 30.5 L, RDW 16.5, Plt Count 285, MPV 9.8, Neut % (Auto) 78.3, Lymph % (Auto) 17.5, [place] % (Auto) 3.2, Eos % (Auto) 0.5, Baso % (Auto) 0.5, Neut # (Auto) 7.1, Lymph # (Auto) 1.6, [place] # (Auto) 0.3, Eos # (Auto) 0.0, Baso # (Auto) 0.0, Blood Type O Positive, Antibody Screen Negative, Crossmatch (AHG) See Detail I & O for Last 24 hours: Intake & Output 02/17/24 02/18/24 02/19/24 02/20/24 23:59 23:59 23:59 23:59 Weight 168 lb Narrative: General: patient is alert oriented in no acute distress and responds appropriately to questions. HEENT: NCAT, EOMI, moist mucous membranes, neck supple with full ROM Cardiovascular: RRR +S1/S2, no murmurs or rubs Pulmonary: Clear to auscultation bilaterally, nonlabored breathing, symmetric chest rise Abdominal: Gravid abdomen appropriate for gestation. No guarding, rebound, or tenderness noted. Extremities: trace edema, no tenderness or cyanosis noted Skin: Normal turgor, intact, warm. Negative for erythema, pallor, petechia, or lesions Neurologic: Negative for sensory or motor deficit Psychiatric: Normal affect, normal thought process, good judgment and insight, no depression or anxious mood appreciated. *Routine HEENT Exam Head: Present normocephalic and atraumatic Eye: Present EOMI, PERRL and normal accommodation; Absent conjunctival icterus, scleral injection, nystagmus or exophthalmos ENT: Present mucous membranes moist *Routine Respiratory Exam Respiratory: Present CTA bilaterally, normal respiratory effort, able to speak in complete sentences and symmetric chest movement; Absent accessory muscle use, decreased breath sounds, rales, respiratory distress, wheezes, distant breath sounds or diminished air movement *Routine Cardiovascular Exam Cardiovascular: Present RRR, Normal S1 and Normal S2; Absent murmur or gallop *Routine Abdominal Exam Abdominal: Present soft and normoactive bowel sounds; Absent tenderness, distended, rebound or guarding *Routine Rectal Exam Rectal:: deferred *Routine Genitalia Exam Genitalia:: normal female Assessment and Plan *Assessment and plan (1) VSD (ventricular septal defect): Status: Acute Category: Medical Code(s): Q21.0 - Ventricular septal defect (2) Asymmetric IUGR affecting , antepartum: Status: Acute Category: Medical Code(s): O36.5990 - Maternal care for other known or suspected poor growth, unspecified trimester, not applicable or unspecified Plan - Monitor vitals - Admit to L&D for induction of labor - Plan for induction with 50mcg of vaginal cytotec [id number] x 1dose followed by Pitocin, per protocol - External FHR and TOCO monitor - Exam on rupture: /-3 - GBS neg/ Blood type: O+ - Hemoglobin: 9.2, Plt: 285 - undecided on anesthesia preference - Anticipate vaginal delivery of female : Kristi #Rubella equivocal -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 We will follow this closely and possibly give an Iv Iron infusion day 1
--- NOTE | 2024-02-20 12:30 | EXP.DN ---
Delivery Note Delivery Date:: 02/20/24 Delivery Time:: 12:10 Was labor medically induced?: Yes Induction method: per misoprostol protocol Gestational age (weeks): 37 Infant delivered prior to 39 weeks?: Yes Justification for early elective delivery:: IUGR Infant Gender: Female at 1 minute: 7 at 5 minutes: 8 Delivery Procedure:: Preoperative diagnosis: 1. at 37 completed this weeks gestation, vertex 2. Rh positive 3. GBS negative 4. ventral septal defect 5. Intrauterine growth restriction 6. History of 18-week loss Postoperative diagnosis: 1. at 37 completed this weeks gestation, vertex 2. Rh positive 3. GBS negative 4. ventral septal defect 5. Intrauterine growth restriction 6. History of 18-week loss EBL: 100mL Specimen: 1. Cord blood 2. Placenta Findings: 1. Liveborn viable female infant: Kristi. Apgars 7/8 at 1 and 5 minutes respectively. Weight: 2543g Complications: None Procedure: Nonoperative spontaneous vaginal delivery Luann Ellington is a 33-year-old who is brought into labor and delivery last night for cervical ripening and to begin the process of induction of labor. Her was complicated by intrauterine growth restriction, VSD, and a history of an 18-week loss. She was followed by [facility] who recommended delivery at 37 weeks gestation. She had an ADELE of 03/10/2024 based on LMP that was consistent with a 9-week ultrasound, and this gave her a gestational age of 37 weeks and 2 days gestation today Patient was brought to labor and delivery for Cytotec cervical ripening. She received 1 doses of Cytotec and tolerated that well. She was started on Pitocin this morning. Patient had artificial rupture of membranes revealing clear fluid. At approximately 4 to 5 cm her contractions became very intense and she requested an epidural. When anesthesia arrived she was 8 to 9 cm and unable to get an epidural. She quickly progressed to complete. FHT were reassuring throughout labor. The was noted to be in TYREE position. With effective maternal pushing there was a nonoperative spontaneous vaginal delivery at 1210. There was a body cord x1 that was reduced without difficulty. There was a compound presentation with the anterior right upper extremity. The anterior right shoulder delivered, followed by the posterior shoulder without dystocia. The body and lower extremities delivered without difficulty. The infant was bulb suctioned and was crying immediately following delivery. The infant was placed on the maternal abdomen and greater than one minute was appreciated for delayed cord clamping. The umbilical cord was doubly clamped and cut. Cord blood was collected and sent for routine testing. The placenta delivered with cord traction and suprapubic contertraction. Pitocin was started and the placenta and cord were inspected. The placenta was noted to be intact, with a 3 vessel cord. The uterus was firm and bleeding was minimal. The perineum, vaginal xiao, cervix, and paraurethral area were inspected thoroughly and noted to be hemostatic and free of laceration. This concluded the delivery. The patient was counseled regarding the events of the delivery. The patient tolerated the delivery well. All counts were correct by nursing. Mother was doing well upon my leaving the delivery room. Motion Picture Projectionist presented for evaluation. Placental Delivery Description: Spontaneous
[2024-02-20] MEDS: IBUPROFEN 400 MG TABLET 800 MG PO (15:47)
[2024-02-20] MEDS: ACETAMINOPHEN 500MG TAB 1000 MG PO (15:47)
--- NOTE | 2024-02-20 17:16 | EXP.DC.SUM ---
General Admission date:: 02/19/24 Discharge date: 02/20/24 HPI HPI HPI: Luann Ricardo is a 33-year-old at 37 weeks and 2 days gestation who presented to labor and delivery for a scheduled induction secondary to IUGR. This pregnacy was followed by MFM for IUGR, hx of 18 wk loss and a VSD. On presentation patient endorsed good movement and denies any leakage of fluid or vaginal bleeding. O+, antibody negative, rubella equivocal, hepatitis B negative, hepatitis C negative, RPR negative, HIV negative 1 hour GTT: did not complete GBS negative Hospital Course Hospital Course Hospital Course: Luann Ricardo is a 33yo PPD#0 who had an at 37w2d gestation. Delivery indicated secondary to IUGR. was complicated by a VSD. Delivery was uncomplicated. was transferred to and Pt desired transfer for a compassionate care bed. Discussed discharge home. Patient states that she is having a little bit of increased pain at this time and would prefer compassionate care bed transfer. Routine discharge instructions were reviewed with the patient in detail and she voiced understanding. Discussed baby blues and depression. Discussed returning to care for increased bleeding, chest pain, shortness of breath, and fevers. Reviewed the signs and symptoms of a DVT. Printed discharge instructions were also reviewed with the patient and provided. Exam Data for Last 24 hours Vital signs and Labs for Last 24 Hours: Temp Pulse Resp BP Pulse Ox O2 Del Method 98.5 F 95 H 18 116/67 100 Room Air 02/19/24 21:54 02/19/24 21:54 02/19/24 21:54 02/19/24 21:54 02/19/24 21:54 02/19/24 21:54 Laboratory Results - last 24 hr 02/19/24 21:53: Urine Color Yellow, Urine Appearance Clear, Urine pH 6.0, Ur Specific [place] 1.025, Urine Protein Negative, Urine Glucose (UA) Negative, Urine Ketones Trace, Urine Blood Negative, Urine Nitrate Negative, Urine Bilirubin Negative, Urine Urobilinogen 2.0, Ur Leukocyte Esterase Negative, Urine WBC 3-5, Ur Squamous Epith Cells 3-5, Urine Bacteria 1+, Urine Mucus 1+, Urine Opiates Screen Negative, Urine Methadone Screen Negative, Ur Barbituates Screen Negative, Ur Phencyclidine Scrn Negative, Ur Amphetamines Screen Negative, U Benzodiazepines Scrn Negative, Urine Cocaine Screen Negative, U Marijuana (THC) Screen Negative 02/19/24 22:06: WBC 9.1, RBC 3.98 L, Hgb 9.2 L, Hct 30.2 L, MCV 75.9 L, MCH 23.1 L, MCHC 30.5 L, RDW 16.5, Plt Count 285, MPV 9.8, Neut % (Auto) 78.3, Lymph % (Auto) 17.5, [place] % (Auto) 3.2, Eos % (Auto) 0.5, Baso % (Auto) 0.5, Neut # (Auto) 7.1, Lymph # (Auto) 1.6, [place] # (Auto) 0.3, Eos # (Auto) 0.0, Baso # (Auto) 0.0, Blood Type O Positive, Antibody Screen Negative, Crossmatch (AHG) See Detail I & O for Last 24 hours: Intake & Output 02/17/24 02/18/24 02/19/24 02/20/24 23:59 23:59 23:59 23:59 Weight 168 lb Narrative: General: patient is alert oriented in no acute distress and responds appropriately to questions. HEENT: NCAT, EOMI, moist mucous membranes, neck supple with full ROM Cardiovascular: RRR +S1/S2, no murmurs or rubs Pulmonary: Clear to auscultation bilaterally, nonlabored breathing, symmetric chest rise Abdominal: Fundus below the umbilicus, firm, and tenderness appropriate for the period. Extremities: trace edema, no tenderness or cyanosis noted Skin: Normal turgor, intact, warm. Negative for erythema, pallor, petechia, or lesions Neurologic: Negative for sensory or motor deficit Psychiatric: Normal affect, normal thought process, good judgment and insight, no depression or anxious mood appreciated. Results Data Completed and Pending Labs on day of discharge: Labs from last 24 hours 02/19/24 02/19/24 22:06 21:53 WBC 9.1 RBC 3.98 L Hgb 9.2 L Hct 30.2 L MCV 75.9 L MCH 23.1 L MCHC 30.5 L RDW 16.5 Plt Count 285 MPV 9.8 Neut % (Auto) 78.3 Lymph % (Auto) 17.5 [place] % (Auto) 3.2 Eos % (Auto) 0.5 Baso % (Auto) 0.5 Neut # (Auto) 7.1 Lymph # (Auto) 1.6 [place] # (Auto) 0.3 Eos # (Auto) 0.0 Baso # (Auto) 0.0 Urine Color Yellow Urine Appearance Clear Urine pH 6.0 Ur Specific [place] 1.025 Urine Protein Negative Urine Glucose (UA) Negative Urine Ketones Trace Urine Blood Negative Urine Nitrate Negative Urine Bilirubin Negative Urine Urobilinogen 2.0 Ur Leukocyte Esterase Negative Urine WBC 3-5 Ur Squamous Epith Cells 3-5 Urine Bacteria 1+ Urine Mucus 1+ Urine Opiates Screen Negative Urine Methadone Screen Negative Ur Barbituates Screen Negative Ur Phencyclidine Scrn Negative Ur Amphetamines Screen Negative U Benzodiazepines Scrn Negative Urine Cocaine Screen Negative U Marijuana (THC) Screen Negative Blood Type O Positive Antibody Screen Negative Crossmatch (AHG) See Detail DS: Diagnosis Discharge Diagnosis (1) VSD (ventricular septal defect): Status: Acute Code(s): Q21.0 - Ventricular septal defect (2) Asymmetric IUGR affecting , antepartum: Status: Acute Code(s): O36.5990 - Maternal care for other known or suspected poor growth, unspecified trimester, not applicable or unspecified Meds Home Medications and Allergies Home Medications ?Medication ?Instructions ?Recorded ?Confirmed ?Type vits no.126-ferrous fum 1 tab PO DAILY #30 tabs 08/14/23 02/20/24 Rx 28 mg iron-folic acid 800 mcg tablet (Classic ) acetaminophen 500 mg tablet 500 mg PO Q6H PRN fever or pain 02/20/24 Rx #30 tabs ferrous sulfate 325 mg (65 mg 325 mg PO DAILY #30 tabs 02/20/24 Rx iron) tablet,delayed release ibuprofen 800 mg tablet 800 mg PO Q8H PRN pain #60 tabs 02/20/24 Rx sennosides 8.6 mg tablet (Senna 8.6 mg PO BIDP PRN Constipation 02/20/24 Rx Lax) #60 tabs New Prescriptions to Start Prescriptions: acetaminophen Kuldeep,Patricia ferrous sulfate Kuldeep,Patricia ibuprofen Kuldeep,Patricia sennosides [Senna Lax] Patricia Light Allergies Allergy/AdvReac Type Severity Reaction Status Date / Time doxycycline [DOXYCYCLINE] Allergy Intermediate VOMITING Verified 02/09/24 10:35 Discharge Plan Disposition Patient Disposition: Xfer Intermediate Care Fac Discharge Order Discharge Orders: Discharge Order (Routine); Ordered 02/20/24 Ordered By: Patricia Lgiht Follow up Plan Follow up with: Patricia Light DO [Staff Physician] - 2 weeks Prescriptions/Medication Reconciliation: New sennosides [Senna Lax] 8.6 mg Tablet 8.6 mg PO BIDP PRN (Reason: Constipation) Qty: 60 2RF ibuprofen 800 mg tablet 800 mg PO Q8H PRN (Reason: pain) Qty: 60 2RF acetaminophen 500 mg tablet 500 mg PO Q6H PRN (Reason: fever or pain) Qty: 30 3RF ferrous sulfate 325 mg (65 mg iron) tablet,delayed release (DR/EC) 325 mg PO DAILY Qty: 30 3RF Continued Classic 28 mg iron- 800 mcg tablet 1 tab PO DAILY Qty: 30 11RF Problem Reconciliation Problems Reviewed?: Yes Patient Discharge Instructions ACTIVITY: Continue current activity DIET: regular diet Additional Instructions: Congratulations on the delivery of your sweet baby girl. It is my privilege to be your doctor and I am so thankful I could be a part of your special day. Discharge: -Take 800 mg Ibuprofen every 8 hours as needed for pain. You can also take 500-1000 mg of Tylenol in between doses, every 6-8 hours. -Colace can be taken 1-2 times per day as you need to soften your stool. Make sure to drink at least 8 cups of water per day. -Iron supplements can make you constipated. You can take iron tablets every other day if constipation is too bad. -Nothing in the vagina for 6 weeks - no intercourse, douching, tampons. No tub baths or swimming pools. -Do not lift greater than 20pounds for 2 weeks, this is the equivalent of 2 gallons of milk. -Reasons to return to L&D or call On-Call doctor - fever (greater than 100.4) - heavy vaginal bleeding (soaking through 1 pad in less than 2 hours or passing clots that are egg sized) - vaginal discharge (malodorous and/or purulent) - severe headaches, leg tenderness/edema, or any other symptoms that warrant immediate medical attention. depression/blues - Normal to feel anxious/overwhelmed for first 2 weeks - Talk to your doctor if: anxiety lasts over 2 weeks, trouble bonding with baby, withdrawing from other family members, thoughts of harming yourself or others Patricia Light DO [facility] [phone] *Nothing in the Vagina for 6 weeks* *No strenuous activity* *No heavy lifting* *No tub baths until okay's by MD* Print Language: Greenlandic Providers Primary Care Provider: Provider,Referral Admit Provider: Efrain Neal Attending Provider: Efrain Neal
[2024-02-20 18:05] VITALS: BP 111/62; PULSE 84; RESP 15; TEMP 36.7; O2SAT 99
[2024-02-20 20:24] VITALS: BP 113/59; PULSE 71; RESP 16; TEMP 36.8; O2SAT 100
[2024-02-22 12:12] LABS: Rapid Plasma Reagin Ab Titer Non Reactive titer (NonRea<1:1)
--- NOTE | 2024-02-22 15:20 | SW/DCPLANNER ---
Infant cord screen is NEGATIVE.
== END 2024-02-21 00:15 | disposition short-term general hospital (02) | DRG 807 ==
PROVIDERS: Obstetrics & Gynecology; Admitting Provider Nurse Practitioner Obstetrics & Gynecology; Visit Provider Nurse Practitioner Obstetrics & Gynecology
DX: O36.5930 Maternal care for other known or suspected poor fetal growth, third trimester, not applicable or unspecified (principal); Z37.0 Single live birth; Z3A.37 37 weeks gestation of pregnancy; O32.6XX0 Maternal care for compound presentation, not applicable or unspecified; O69.82X0 Labor and delivery complicated by other cord entanglement, without compression, not applicable or unspecified; O35.BXX0 Maternal care for other (suspected) fetal abnormality and damage, fetal cardiac anomalies, not applicable or unspecified
CPT/HCPCS: 59409; 59025; 80307; 81001; 85025; 86403; 86593; 86850; 87086; 94761; G0283; G0463

== ENCOUNTER 2024-03-14 14:30 | Outpatient (CLI) | payer OTHER, SELFPAY | END 2024-03-14 23:59 | disposition home or self-care (01) | LOC: LAB.DROPOF 03-15 12:42 | PROVIDERS: PCP Obstetrics & Gynecology; Visit Provider Obstetrics & Gynecology | DX: R39.9 Unspecified symptoms and signs involving the genitourinary system (principal) | CPT/HCPCS: 87086; 87088; 87186 ==

== ENCOUNTER 2024-11-03 23:27 | Emergency (ER) | payer OTHER, SELFPAY ==
[2024-11-03 23:35] VITALS: BP 135/69; PULSE 88; RESP 16; TEMP 36.6; O2SAT 100; BMI 27.4
--- NOTE | 2024-11-03 23:47 | HMH.EDGENADL ---
Discharge Plan Disposition Patient Disposition: Home, Self-Care Condition: Good Prescriptions Prescriptions: New nitrofurantoin monohyd/m-cryst [Macrobid] 100 mg capsule 100 mg PO BID 5 Days Qty: 10 0RF Rx Instructions: must administer with a meal/food No Action nitrofurantoin monohyd/m-cryst [Macrobid] 100 mg capsule 100 mg PO BID 5 Days Qty: 10 0RF Rx Instructions: must administer with a meal/food ferrous sulfate 325 mg (65 mg iron) tablet,delayed release (DR/EC) 325 mg PO DAILY Qty: 30 3RF Referrals Follow up/Referrals: Patricia Light, [Staff Physician] - See instructions (concern for blighted ovum/anembryonic ) Provider,Referral, MD [Primary Care Provider] - See instructions Activity Restrictions/Add. Instructions Additional Instructions/Restrictions: You were evaluated in the ER and are believed to be appropriate for discharge at this time. Take the prescribed antibiotics as directed, do not skip doses, do not stop taking them early. Monitor your bleeding as discussed, return to the ER if your bleeding worsens and you are saturating 1 pad per hour or more. Call the OB office first thing this morning when they open to make an appointment with Dr. Light to be seen on Monday. Tell her the ER is concerned for possible blighted ovum. Return to the ER with any new, worsening, or otherwise concerning symptoms as discussed. Clinical Impressions Clinical Impression: Vaginal bleeding during , Asymptomatic bacteriuria, Anembryonic Print Language Print Language: French Discharge ED Provider: Livia Collins General Adult HPI General Chief complaint: Vaginal Bleeding Stated complaint: with bleeding Time Seen by Provider: 11/03/24 23:30 Mode of Arrival: Ambulatory Source of Information: Patient Description of Symptoms (Recalled from ER Triage Doc. by RN): Patient is - has not been to OB- LMP at end of aug.- Vaginal bleeding- light History of Present Illness HPI narrative: 34-year-old female approximately 8-9 weeks based on LMP presents to the ER with light vaginal bleeding. Patient reports she thought she had very small traces of old blood when she wiped in the last 4 to 5 days, however today around 5 PM she started having actual blood coming out . She states it is a small amount and she does not need to wear a pad, not passing clots. She does have cramping like a mild period but not having severe pain. No dysuria or hematuria. No recent illness. She states she is having nausea of early but no vomiting. No other complaints or concerns. No medications prior to arrival. Patient is not currently on any daily medications, not on a . Does not know her blood type. Patient reports she has not yet had her first OB appointment for this but plans to follow-up with Dr. Light. Related Data Previous Rx's ?Medication ?Instructions ?Recorded ferrous sulfate 325 mg (65 mg 325 mg PO DAILY #30 tabs 02/20/24 iron) tablet,delayed release nitrofurantoin 100 mg PO BID 5 days #10 caps 03/18/24 monohydrate/macrocrystals 100 mg capsule (Macrobid) nitrofurantoin 100 mg PO BID 5 days #10 caps 11/04/24 monohydrate/macrocrystals 100 mg capsule (Macrobid) Allergies Allergy/AdvReac Type Severity Reaction Status Date / Time doxycycline (DOXYCYCLINE) Allergy Intermediate VOMITING Verified 03/14/24 14:16 [facility] Disclaimer: The information contained in this section may have been updated after the patient was seen, as this information can be updated by other users. Medical History (Updated 11/04/24 @ 01:35 by Livia Collins MD) VSD (ventricular septal defect) Bartholin gland cyst Surgical History No significant past surgical history Family History Other Thyroid disorder Social History Smoking Status: Never smoker alcohol intake: never substance use type: marijuana current occupational status: employed Travel in the last 8 weeks?: None Have you lived/traveled outside [place] in past 30 days?: No Contact w/someone who lives/traveled outside US past 30 days?: No Exposure to someone with infectious disease in past 14 days?: No Do you have a fever (greater than 100.4 F or 38 C)?: No Have you tested positive for COVID-19?: No Exposed to someone with COVID-19 in past 14 days?: No Do you have a sore throat?: No Do you have a cough?: No Do you have any weakness?: No Do you have any diarrhea?: No Are you experiencing any unusual bleeding?: No Do you have any muscle aches/pain?: No Do you have any abdominal pain?: No Are you experiencing loss of taste or smell?: No Other Medical History Have you received the Flu Vaccine for this season: No Have you received the Pneumonia Vaccine: No ROS Obtained: Yes Systems reviewed as appropriate & no additional complaints except as documented Per HPI Physical Exam General General appearance: alert and in no apparent distress Head Head exam: atraumatic and normocephalic Eye Eye exam: Present PERRL and EOMI ENT ENT exam: Present mucous membranes moist Neck Neck exam: Present normal inspection and full ROM Chest Chest inspection: Present symmetric chest wall rise Respiratory Respiratory exam: Present normal lung sounds bilaterally; Absent respiratory distress, wheezes or stridor Cardiovascular Cardiovascular exam: Present regular rate and normal rhythm Abdominal Exam Abdominal exam: Present soft and tenderness (Mild lower abdominal tenderness without rebound or guarding, mainly in the suprapubic area); Absent distention, guarding or rebound Extremities Exam Extremities exam: Present full ROM Neurological Exam Neurological exam: Present alert and oriented X3; Absent motor sensory deficit Psychiatric Psychiatric exam: Present normal affect and normal mood Skin Skin exam: Present warm and dry Medical Decision Making Medical Records Medical records reviewed: Yes I reviewed the patient's medical records. Screening: Per USPSTF and CDC recommendations, given the prevalence of disease in our region, it is our hospital?s policy to screen for HIV and viral Hepatitis for all patients aged 18 and over and those with ongoing risk factors. MR Comment: Most recent note from Dr. Light from March 2024 demonstrates she was 3 weeks at that time declining contraception. Patient was cleared from an OB standpoint and plan for follow-up at 6 weeks for pelvic exam but no evidence that patient did follow-up. [place] Inquiry Pt receiving controlled substance: No Vital Signs: 11/03/24 23:35 Temperature 97.9 F Temperature Source Oral Pulse Rate [Right Radial] 88 Respiratory Rate 16 Blood Pressure [Right Arm] 135/69 Blood Pressure Mean [Right Arm] 91 Blood Pressure Source [Right Arm] Automatic Cuff Blood Pressure Position [Right Arm] Supine 02 Sat by Pulse Oximetry 100 Oxygen Delivery Method Room Air Lab Data Lab Results 11/04/24 00:01: WBC 11.8 H, RBC 4.45, Hgb 11.7 L, Hct 36.2 L, MCV 81.3, MCH 26.3 L, MCHC 32.3, RDW 15.7, Plt Count 276, MPV 11.5 H, Neut % (Auto) 73.8, Lymph % (Auto) 21.7, [place] % (Auto) 3.7, Eos % (Auto) 0.3, Baso % (Auto) 0.3, Neut # (Auto) 8.7 H, Lymph # (Auto) 2.6, [place] # (Auto) 0.4, Eos # (Auto) 0.0, Baso # (Auto) 0.0, Sodium 140, Potassium 3.1 L, Chloride 106, Carbon Dioxide 25, Anion Gap 12.1, BUN 11, Creatinine 0.60, Estimated Creat Clear 151, Estimated GFR 114, Est GFR ( Amer) 138, Glucose 101 H, Calcium 9.5, Total Bilirubin 0.3, AST 17, ALT 12, Alkaline Phosphatase 77, Total Protein 7.5, Albumin 5.0, Globulin 2.5, Albumin/Globulin Ratio 2.0 H 11/04/24 00:03: Urine Color Yellow, Urine Appearance Clear, Urine pH 6.0, Ur Specific [place] <= 1.005, Urine Protein Negative, Urine Glucose (UA) Negative, Urine Ketones 1+, Urine Blood 3+ A, Urine Nitrate Negative, Urine Bilirubin Negative, Urine Urobilinogen 0.2, Ur Leukocyte Esterase 1+ A 11/04/24 00:10: Blood Type O Positive 11/04/24 00:01 11/04/24 00:01 Orders (Tests/Meds): ORDERS Category Date Time Status ABO/RH Type Stat BBK 11/03/24 23:30 Completed POCUS Point of Care (ER Only) Stat Exams 11/03/24 23:30 Ordered Beta HCG, Quant [HCG,Quantitative] Stat Lab 11/03/24 23:30 Results CBC w/Auto Diff [Complete Blood Count Auto Diff] Stat Lab 11/03/24 23:30 Completed CMP [Comprehensive Metabolic Panel] Stat Lab 11/03/24 23:30 Results Urinalysis and Microscopic Stat Lab 11/04/24 00:03 Results Urine Culture Stat Micro 11/04/24 00:03 Received US OB transvaginal Stat Ultrasound 11/04/24 00:09 Ordered Medical Decision Narrative: In summary, this 34-year-old female approximately 8 to 9 weeks based on LMP with a medical history including asymmetric IUGR, anemia presents to the emergency department today with concerns of light vaginal bleeding in early . On initial evaluation patient is hemodynamically stable, afebrile, patient has very mild tenderness to palpation of the low abdomen without rebound or guarding, no peritonitic findings. She reports very light bleeding not even requiring feminine products. Differential diagnosis includes but is not limited to subchorionic hemorrhage, spontaneous , ectopic , asymptomatic bacteriuria, UTI, among others. Based on these concerns, I ordered serum labs including quantitative hCG, urine studies, and I am performing [id number] bedside ultrasound initially. [id number] bedside ultrasound performed and personally interpreted does not demonstrate significant pelvic free fluid, there appears to be a sac within the uterus however I do not appreciate obvious fetus or cardiac activity. Transvaginal ultrasound ordered and pending. Labs reviewed by me demonstrate mild leukocytosis, WBC 11.8, mild anemia hemoglobin 11.7, nonactionable, platelets normal, CMP with mild hypokalemia, patient is receiving oral repletion. UA with small leukocyte esterase and blood which could be from patient's vaginal bleeding, she also has trace bacteria. Quantitative hCG 15,141. lead principal technical architect came and told me what she saw on the scan which was a gestational sac and yolk sac measuring approximately 6 weeks 6 days, however she reported that the patient told her her last menstrual period was the end of July, approximately 15 weeks ago. lead principal technical architect reported concerns that even at 6 weeks, 6 days she would have expected to see more within the sac than what she saw, however she did not see ectopic or free fluid. Awaiting radiology read. With these findings which support what I saw on ultrasound, I have increased concern for possible blighted ovum/anembryonic based on patient's timeline of LMP. Radiology read agrees with the park maintenance technician that the sac is measuring 6 weeks 6 days and there is the presence of a yolk sac but no pole or heart tones. Normal ovaries. See radiology read for full interpretation. I discussed further with the patient and she reports her first missed period was the end of August and her last actual period occurred at the end of July, estimated ~15 weeks since last period. With these findings, I reached out to OB on-call and spoke with Dr. Thornton regarding patient's presentation, last menstrual period approximately 15 weeks ago, and gestational sac without obvious contents. We discussed labs including patient's hCG level. She also believes with this presentation and these results that patient likely has an anembryonic . Since the patient is comfortable and having minimal bleeding she recommends outpatient follow-up. She reports that Dr. Light, the patient's OB, is in the office on Monday this week. She recommends the patient follow-up with her at that time. We discussed the patient's UA results which do show findings of asymptomatic bacteriuria, erring on the side of caution in case patient's is actually only 6w6d, she did recommend treatment with Macrobid. I appreciate all her recommendations. Macrobid was administered in the ER and prescribed to the patient. Patient is appropriate for discharge. She was given instructions on symptomatic monitoring and management including how to monitor her bleeding, medication use, follow up instructions including immediate follow-up with OB, and return precautions for the emergency department. Patient indicated understanding and was discharged in stable condition. Procedures Miscellaneous Procedure Procedure Performed: Limited OB ultrasound Indication: Positive home test, vaginal bleeding Identified structures: [-Uterus -Left adnexa -Right adnexa -Pouch of Jose] Findings: Uterus: Fluid-filled sac in the uterus, no obvious fetus or cardiac activity, no definite intrauterine Right adnexa: Normal Left adnexa: Normal Cul de sac: No free fluid Impression: -IUP: Not identified, there is a fluid-filled sac in the uterus - heart rate: Not identified -Ectopic : Not identified -Free fluid: Absent Images were saved to permanent archive The study was technically adequate CPT Transabdominal: 07089-34 This study was performed by me, and I personally interpreted all images/videos. Based on my clinical judgement, these images were adequate and did not necessitate further imaging. Critical Care Critical Care Time Critical Care Time: No
--- NOTE | 2024-11-04 00:09 | US_ITS ---
PROCEDURE INFORMATION: Exam: US , Transvaginal Exam date and time: 11/04/2024 12:11 AM Age: 34 years old Clinical indication: Lmp or gestational age (in weeks): 07/22/2024; Other: Spotting; ; Additional info: Vaginal bleeding estimated 8-9w preg, R/O ectopic LABS AND CLINICAL REPORTS: Last menstrual period start date: 07/22/2024 Gestational age (Established): 15 w 0 d Estimated due date (Established): 04/28/2025 TECHNIQUE: Imaging protocol: Real-time transvaginal obstetrical ultrasound of the maternal pelvis with image documentation. Transvaginal imaging was used for better evaluation of the fetus, adnexa, and/or cervix. COMPARISON: US OB BIOPHYSICAL PROFILE 02/09/2024 12:30 PM FINDINGS: Gestation: There is a intrauterine with yolk sac noted. No pole or heart tones noted. BIOMETRY: Gestational age (AUA): 6 w 6 d Estimated due date (AUA): 06/24/2025 Mean sac diameter: 2.19 cm. Mean sac diameter consistent with 6 weeks 6 days gestational age. MATERNAL: Right ovary/adnexa: Right ovary measures 2.57 cm x 1.65 cm x 1.65 cm. Right ovarian volume is 3.66 mL. Left ovary/adnexa: Left ovary measures 3.09 cm x 1.81 cm x 2.72 cm. Left ovarian volume is 7.97 mL. Other findings: Normal ovaries and ovarian Doppler. IMPRESSION: 1. There is a intrauterine with yolk sac noted. 2. No pole or heart tones noted. 3. Mean sac diameter consistent with 6 weeks 6 days gestational age. 4. Normal ovaries and ovarian Doppler. 5. Recommend serial quantitative beta HCG measurements to further evaluate.
[2024-11-04 00:22] LABS: Microscopic, Urine URINE MICROSCOPIC (MICROSCOPIC)
[2024-11-04 00:26] LABS: Basophils % 0.3 % (0.1-2.0); Eosinophils % 0.3 % (0.1-12.0); Hematocrit 36.2 % (37.0-47.0); Hemoglobin 11.7 g/dL (12.2-16.2); Lymphocytes # 2.6 K/mm3 (0.7-4.5); Lymphocytes % 21.7 % (10-50); Mean Corpuscular HGB Conc 32.3 g/dL (31.8-35.4); Mean Corpuscular Hemoglobin 26.3 pg (27.0-31.2); Mean Corpuscular Volume 81.3 fl (81-99); Mean Platelet Volume 11.5 fl (7.4-10.4); Monocytes # 0.4 K/mm3 (0.1-1.0); Monocytes % 3.7 % (1.7-9.3); Neutrophils # 8.7 K/mm3 (1.8-7.8); Neutrophils % 73.8 % (37.0-80.0); Nucleated Red Blood Cells # 0 10^3/uL; Nucleated Red Blood Cells % 0 %; Platelet Count 276 K/mm3 (142-424); Red Blood Count 4.45 M/mm3 (4.20-5.40); Red Cell Distribution Width 15.7 % (11.5-17.5); Red Cell Distribution Width-SD 46.1 fL; White Blood Count 11.8 K/mm3 (4.8-10.8)
[2024-11-04 00:27] LABS: Appearance,Urine CLEAR (Clear); Bilirubin,Urine Negative (Negative); Blood, Urine 3+ (Negative); Color,Urine YELLOW (Yellow); Glucose,Urine (UA) Negative (Negative); Ketones,Urine 1+ (Negative); Leukocyte Esterase,Urine 1+ (Negative); Nitrate,Urine Negative (Negative); Protein,Urine Negative (Negative); Specific Gravity, Urine <= 1.005 (1.005-1.030); Urobilinogen,Urine 0.2 EU/dl (0.2)
[2024-11-04 00:29] LABS: Chloride 106 mmol/L (98-107); Potassium 3.1 mmoL/L (3.5-5.1); Sodium 140 mmol/L (136-145)
[2024-11-04 00:31] LABS: Blood Urea Nitrogen 11 mg/dl (7-17); Creatinine Clearance Estimated 151 mL/min (50-200); Estimated Glomerular Filt Rate 114 ml/min (>60); GFR (African American) 138 ML/MIN (>60)
[2024-11-04 00:32] LABS: Alanine Aminotransferase 12 U/L (12-78); Alkaline Phosphatase 77 U/L (38-126); Anion Gap 12.1 mEq/L (5-15); Aspartate Amino Transferase 17 U/L (14-36); Bilirubin,Total 0.3 mg/dl (0.2-1.3); Calcium 9.5 mg/dl (8.4-10.2); Carbon Dioxide 25 mmol/L (22.0-30.0); Globulin 2.5 g/dL (1.3-3.2); Glucose 101 mg/dl (74-100); Total Protein,Serum 7.5 g/dl (6.3-8.2)
[2024-11-04 00:41] LABS: Bacteria,Urine Trace /lpf
[2024-11-04] MEDS: POTASSIUM CHLORIDE 20MEQ TAB 40 MEQ PO (00:59)
[2024-11-04 01:14] LABS: HCG,Quantitative 15141 mIU/ml (0-5.42)
[2024-11-04] MEDS: NITROFURANTOIN 100MG CAPSULE 100 MG PO (01:31)
[2024-11-04 01:38] VITALS: BP 119/71; PULSE 80; RESP 16; TEMP 36.6; O2SAT 98
== END 2024-11-04 01:39 | disposition home or self-care (01) ==
PROVIDERS: Emergency Provider Emergency Medicine
DX: O20.9 Hemorrhage in early pregnancy, unspecified (principal); R10.30 Lower abdominal pain, unspecified; E87.6 Hypokalemia; R82.71 Bacteriuria; Z3A.01 Less than 8 weeks gestation of pregnancy
CPT/HCPCS: 76817; 80053; 81001; 84702; 85025; 86900; 86901; 87086; 99285

== ENCOUNTER 2024-11-06 10:01 | Emergency (ER) | payer OTHER, SELFPAY ==
[2024-11-06 10:11] VITALS: BP 117/80; PULSE 90; RESP 16; TEMP 36.9; O2SAT 100; BMI 25.3
--- NOTE | 2024-11-06 10:29 | ED_ITS ---
<Statement entered by Dacia Kidd DO - 11/06/24 14:15> I was consulted by the SARAHI, and we discussed the complexity of the problems being addressed. I approved the treatment and management plan for this patient's care in the emergency department, thus performing a substantive portion of the medical decision making. Patient is well-appearing on exam. tissue sent for pathology. hCG downtrending. Patient has positive blood type with no indication for RhoGAM. I had an interactive discussion with Dr. Neal who advised he would let Dr. Light know when they would arrange very close follow-up. Strict return precautions were given Dacia Kidd DO Discharge Plan Disposition Patient Disposition: Home, Self-Care Condition: Good Chief Complaint: Urogenital-Female Prescriptions Prescriptions: No Action nitrofurantoin monohyd/m-cryst [Macrobid] 100 mg capsule 100 mg PO BID 5 Days Qty: 10 0RF Rx Instructions: must administer with a meal/food Referrals Follow up/Referrals: Provider,Referral, MD [Primary Care Provider] - See instructions Activity Restrictions/Add. Instructions Additional Instructions/Restrictions: Follow-up with [facility] this week Return if symptoms worsen or do not improve Tylenol or ibuprofen as needed for pain Clinical Impressions Clinical Impression: Spontaneous Instructions Patient Instructions: DI for Miscarriage Print Language Print Language: Portuguese Discharge ED Provider: Dacia Kidd General Adult HPI General Chief complaint: Urogenital-Female Stated complaint: miscarriage Time Seen by Provider: 11/06/24 10:07 Mode of Arrival: Ambulatory Source of Information: Patient Description of Symptoms (Recalled from ER Triage Doc. by RN): patient reports she had a miscarriage this am, she was seen yesterday and they couldnt find a heartbeat. she is having cramping and bleeding with no clots History of Present Illness HPI narrative: 34-year-old female presents for possible miscarriage. Patient states she had been spotting over the weekend and followed up with her [facility] yesterday had ultrasound they could not find a heartbeat. Patient states she was told that he was going to repeat her blood work for a couple of days. Patient states this a.m. she went to the bathroom and passed what she thinks is the products of conception. Patient states she is having cramping and bleeding like she would if she was on her period. Related Data Previous Rx's ?Medication ?Instructions ?Recorded nitrofurantoin 100 mg PO BID 5 days #10 caps 11/04/24 monohydrate/macrocrystals 100 mg capsule (Macrobid) Allergies Allergy/AdvReac Type Severity Reaction Status Date / Time doxycycline (DOXYCYCLINE) Allergy Intermediate VOMITING Verified 11/05/24 13:09 [facility] Disclaimer: The information contained in this section may have been updated after the patient was seen, as this information can be updated by other users. Medical History , CORRESPONDENCE COORDINATOR) VSD (ventricular septal defect) Bartholin gland cyst Surgical History , CORRESPONDENCE COORDINATOR) No significant past surgical history Family History , CORRESPONDENCE COORDINATOR) Thyroid disorder Social History , CORRESPONDENCE COORDINATOR) Smoking Status: Never smoker alcohol intake: never substance use type: marijuana current occupational status: employed Travel in the last 8 weeks?: None Have you lived/traveled outside [place] in past 30 days?: No Contact w/someone who lives/traveled outside [place] past 30 days?: No Exposure to someone with infectious disease in past 14 days?: No Do you have a fever (greater than 100.4 F or 38 C)?: No Have you tested positive for COVID-19?: No Exposed to someone with COVID-19 in past 14 days?: No Do you have a sore throat?: No Do you have a cough?: No Do you have any weakness?: No Do you have any diarrhea?: No Are you experiencing any unusual bleeding?: No Do you have any muscle aches/pain?: No Do you have any abdominal pain?: No Are you experiencing loss of taste or smell?: No Other Medical History Have you received the Flu Vaccine for this season: No Have you received the Pneumonia Vaccine: No ROS Obtained: Yes Systems reviewed as appropriate & no additional complaints except as documented Physical Exam General General appearance: alert and in no apparent distress Respiratory Respiratory exam: Present normal lung sounds bilaterally Cardiovascular Cardiovascular exam: Present regular rate and normal rhythm Abdominal Exam Abdominal exam: Present soft and normal bowel sounds; Absent distention or tenderness Neurological Exam Neurological exam: Present alert and oriented X3 Skin Skin exam: Present warm and intact Medical Decision Making Medical Records Medical records reviewed: Yes I reviewed the patient's medical records. Screening: Per USPSTF and CDC recommendations, given the prevalence of disease in our region, it is our hospital?s policy to screen for HIV and viral Hepatitis for all patients aged 18 and over and those with ongoing risk factors. Han Inquiry Pt receiving controlled substance: No Han was queried for this patient: No Vital Signs: 11/06/24 10:11 11/06/24 11:10 11/06/24 11:30 Temperature 98.5 F Temperature Source Oral Pulse Rate 80 67 Pulse Rate [Right Radial] 90 Respiratory Rate 16 16 Blood Pressure 115/65 105/68 L Blood Pressure [Right Arm] 117/80 Blood Pressure Mean [Right Arm] 92 Blood Pressure Source [Right Arm] Automatic Cuff Blood Pressure Position [Right Arm] Sitting 02 Sat by Pulse Oximetry 100 99 98 Oxygen Delivery Method Room Air Room Air Lab Data Lab results reviewed: Yes I reviewed the patient's lab results. Lab Results 11/06/24 10:46: WBC 13.4 H, RBC 4.33, Hgb 11.7 L, Hct 34.6 L, MCV 79.9 L, MCH 27.0, MCHC 33.8, RDW 15.5, Plt Count 238, MPV 11.3 H, Neut % (Auto) 86.4 H, L ymph % (Auto) 8.2 L, Alpine % (Auto) 4.5, Eos % (Auto) 0.4, Baso % (Auto) 0.2, N eut # (Auto) 11.6 H, Lymph # (Auto) 1.1, Alpine # (Auto) 0.6, Eos # (Auto) 0.1, Baso # (Auto) 0.0, Sodium 138, Potassium 3.6, Chloride 109 H, Carbon Dioxide 21 L, Anion Gap 11.6, BUN 10, Creatinine 0.50 L, Estimated Creat Clear 162, Estimated GFR 141, Est GFR ( Amer) 171 D, Glucose 107 H, Calcium 9.4, Total Bilirubin 0.6, AST 19, ALT 15, Alkaline Phosphatase 81, Total Protein 7.0, Albumin 4.7, Globulin 2.3, Albumin/Globulin Ratio 2.0 H, HCG, Quant 5586 H 11/06/24 10:46 11/06/24 10:46 Orders (Tests/Meds): ORDERS Category Date Time Status Complete Blood Count Auto Diff Stat Lab 11/06/24 10:46 Completed Comprehensive Metabolic Panel Stat Lab 11/06/24 10:46 Completed HCG,Quantitative Stat Lab 11/06/24 10:46 Completed HIV Combo Stat Lab 11/06/24 10:46 Received Hepatitis C Ab Qual. W/ RFX Stat Lab 11/06/24 10:46 Received Medical Decision Narrative: In summary patient is a 37-year-old female who presents to the emergency department for evaluation of vaginal bleeding and passing tissue, is but unsure of how far along. Patient is hemodynamically stable upon arrival, afebrile. Unremarkable physical exam. Differential diagnosis includes spontaneous , missed . Initial workup will be conducted with labs, pathology. Initial inventions include p.o. challenge. Initial workup reviewed by or beta-hCG shows drop in numbers. Upon repeat evaluation patient still states light cramps and bleeding. Given this patient is appropriate for discharge at this time will follow-up with [facility] this week. Instructed patient if symptoms worsen to return for eval Critical Care Critical Care Time Critical Care Time: No
[2024-11-06 10:53] LABS: Basophils % 0.2 % (0.1-2.0); Eosinophils # 0.1 Kmm3 (0.0-0.4); Eosinophils % 0.4 % (0.1-12.0); Hematocrit 34.6 % (37.0-47.0); Hemoglobin 11.7 g/dL (12.2-16.2); Immature Granulocytes # 0.04 10^3uL; Immature Granulocytes % 0.3 %; Lymphocytes # 1.1 K/mm3 (0.7-4.5); Lymphocytes % 8.2 % (10-50); Mean Corpuscular HGB Conc 33.8 g/dL (31.8-35.4); Mean Corpuscular Volume 79.9 fl (81-99); Mean Platelet Volume 11.3 fl (7.4-10.4); Monocytes # 0.6 K/mm3 (0.1-1.0); Monocytes % 4.5 % (1.7-9.3); Neutrophils # 11.6 K/mm3 (1.8-7.8); Neutrophils % 86.4 % (37.0-80.0); Nucleated Red Blood Cells # 0 10^3/uL; Nucleated Red Blood Cells % 0 %; Platelet Count 238 K/mm3 (142-424); Red Blood Count 4.33 M/mm3 (4.20-5.40); Red Cell Distribution Width 15.5 % (11.5-17.5); White Blood Count 13.4 K/mm3 (4.8-10.8)
--- NOTE | 2024-11-06 11:07 | PC.NURSE ---
specimen sent to lab for pathology
[2024-11-06 11:10] VITALS: BP 115/65; PULSE 80; RESP 16; O2SAT 99
[2024-11-06 11:14] LABS: Alanine Aminotransferase 15 U/L (12-78); Albumin Level 4.7 g/dl (3.5-5.0); Alkaline Phosphatase 81 U/L (38-126); Anion Gap 11.6 mEq/L (5-15); Aspartate Amino Transferase 19 U/L (14-36); Bilirubin,Total 0.6 mg/dl (0.2-1.3); Blood Urea Nitrogen 10 mg/dl (7-17); Calcium 9.4 mg/dl (8.4-10.2); Carbon Dioxide 21 mmol/L (22.0-30.0); Chloride 109 mmol/L (98-107); Creatinine Clearance Estimated 162 mL/min (50-200); Estimated Glomerular Filt Rate 141 ml/min (>60); GFR (African American) 171 ML/MIN (>60); Globulin 2.3 g/dL (1.3-3.2); Glucose 107 mg/dl (74-100); Potassium 3.6 mmoL/L (3.5-5.1); Sodium 138 mmol/L (136-145)
[2024-11-06 11:29] LABS: HCG,Quantitative 5586 mIU/ml (0-5.42)
[2024-11-06 11:30] VITALS: BP 105/68; PULSE 67; O2SAT 98
[2024-11-06 11:54] LABS: HIV Combo NEGATIVE (Negative)
[2024-11-06 12:00] VITALS: BP 121/68; PULSE 89; O2SAT 100
[2024-11-06 12:02] LABS: Hepatitis C Ab Qual. W/ RFX NEGATIVE (Negative)
[2024-11-06 12:09] VITALS: BP 125/69; PULSE 66; RESP 15; TEMP 36.7; O2SAT 99
--- NOTE | 2024-11-08 07:37 | PC.NURSE ---
Discussed urine culture results with . no change needed to treatment plan
== END 2024-11-06 12:10 | disposition home or self-care (01) ==
PROVIDERS: Emergency Provider Emergency Medicine
DX: O03.9 Complete or unspecified spontaneous abortion without complication (principal); Z11.59 Encounter for screening for other viral diseases; Z11.4 Encounter for screening for human immunodeficiency virus [HIV]
CPT/HCPCS: 80053; 84702; 85025; 86803; 87389; 99283

== ENCOUNTER 2024-12-02 15:20 | Outpatient (CLI) | payer OTHER, SELFPAY ==
[2024-12-02 17:06] LABS: HCG,Quantitative 3 mIU/ml (0-5.42)
== END 2024-12-02 23:59 | disposition home or self-care (01) ==
LOC: LAB 15:20
PROVIDERS: Visit Provider Obstetrics & Gynecology
DX: O03.9 Complete or unspecified spontaneous abortion without complication (principal); Z3A.00 Weeks of gestation of pregnancy not specified
CPT/HCPCS: 36415; 84702